=== PATIENT | female | born 1990 | race Two or more races ===

== ENCOUNTER 2019-02-28 14:37 | Inpatient (IN) | payer MEDICAID, OTHER ==
[~2019-02-28] VITALS: Ht 144.8 cm; Wt 62.2 kg
[2019-02-28 15:27] LABS: Albumin 3.9 g/dL (3.4-5.0); Calcium 8.2 mg/dL (8.5-10.1); Potassium 3.7 mmol/L (3.5-5.1)
[2019-02-28 15:30] LABS: BUN/Creatinine Ratio 14.3; Bilirubin, Total 0.7 mg/dL (0.2-1.0); Total Protein 7.9 g/dL (6.4-8.2)
[2019-02-28 15:32] LABS: Basophils # (auto) 0 uL; Basophils % (auto) 0.3 % (0.0-2.0); Eosinophils # (auto) 0.1 uL; Eosinophils % (auto) 0.9 % (0.0-7.0); Hematocrit 40.9 % (36.0-46.0); Hemoglobin 13.7 g/dL (12.2-16.2); Lymphocytes # (auto) 0.6 uL; Lymphocytes % (auto) 7.9 % (10.0-50.0); Mean Corpuscular Hemoglobin 29.7 pg (28.0-32.0); Mean Corpuscular Hgb Conc. 33.4 g/dL (32.0-36.0); Mean Corpuscular Volume 88.7 fL (80.0-100.0); Monocytes # (auto) 0.6 uL; Monocytes % (auto) 7.2 % (0.0-12.0); Neutrophils # (auto) 6.5 uL; Neutrophils % (auto) 83.7 % (37.0-80.0); Platelet Count (auto) 247 10^3/uL (140-450); Red Blood Cells 4.61 10^6/uL (4.0-5.20); Red Cell Distribution Width 15.1 % (11.8-14.3); White Blood Cell 7.8 10^3/uL (4.4-10.8)
[2019-02-28 15:33] LABS: Urine Bacteria NONE SEEN /hpf (None Seen); Urine Blood 1+ /uL (Negative); Urine Mucus FEW (None Seen); Urine Specific Gravity 1.023 (1.001-1.035); Urine WBC 15 /hpf (0 - 5)
[2019-02-28] MEDS ORDERED: cefTRIAXone 1GM/50ML D5W 50 ML IV ONE ×2 (17:30→17:46)
[2019-02-28] MEDS ORDERED: SODIUM CHLORIDE 0.9% 1,000 ML IV ONE ×2 (17:30→20:00)
[2019-02-28] MEDS ORDERED: ONDANSETRON HCL 4 MG/2 ML VIAL IV ONE (17:30)
[2019-02-28] MEDS ORDERED: ONDANSETRON HCL 4 MG/2 ML VIAL ONE (17:46)
[2019-02-28] MEDS ORDERED: MORPHINE SULF INJ 2 MG/ML SYRINGE 1ML IV ONE (20:00)
[2019-02-28] MEDS ORDERED: PROMETHAZINE HCL 25 MG/ML 1ML IV ONE (20:00)
[2019-02-28] MEDS ORDERED: MORPHINE SULF INJ 2 MG/ML SYRINGE 1ML IV PRN (21:00)
[2019-02-28] MEDS ORDERED: ONDANSETRON HCL 4 MG/2 ML VIAL IV PRN (21:00)
[2019-02-28] MEDS: SODIUM CHLORIDE 0.9% 1,000 ML IV SCH (21:18)
[2019-02-28] MEDS ORDERED: FAMOTIDINE (10MG/ML) 2ML VL IV SCH (22:00)
--- NOTE | 2019-02-28 23:14 | NUR ---
MS admit from FAUSTINO CARABALLO admitted to [facility]. Patient oriented to DARWIN CHÁVEZ, RN primary RN, unit, room, bed, and unit policies regarding patient care and visiting hours. Patient weighed by bedscale and encouraged to call if they need something. All questions and concerns addressed, patient verbalized understanding. Bed in low position and call light within reach. VS BP 100/69, O2 saturation 96% room air, HR 60, Temperature 98.2, RR 20. Pain 5/10 will medicate per protocol when available.
[2019-03-01 00:12] VITALS: BP 100/69
[2019-03-01 04:00] VITALS: BP 87/56
--- NOTE | 2019-03-01 04:00 | NUR ---
WILFREDO BETTS. DUE TO LOW PATIENT BP 86/53. VS RETAKEN B/P 87/56 HR 96, RR 16, TEMPERATURE 98.2, O2 SATURATION ON ROOM AIR 98%. PATIENT STATED SHE FEELS DIZZY, DENIES ANY OTHER SYMPTOMS OR PAIN. AWAITING CALL BACK.
--- NOTE | 2019-03-01 05:05 | NUR ---
RECEIVED CALL BACK FROM [facility]. NEW ORDERS RECEIVED 1/2 NS BOLUS IV . ORDERS READ BACK.
[2019-03-01] MEDS ORDERED: SODIUM CHLORIDE 0.9% 500 ML IV ONE (05:15)
[2019-03-01 06:18] LABS: Basophils # (auto) 0 uL; Basophils % (auto) 0.5 % (0.0-2.0); Eosinophils # (auto) 0 uL; Eosinophils % (auto) 0.7 % (0.0-7.0); Hematocrit 34.7 % (36.0-46.0); Hemoglobin 11.7 g/dL (12.2-16.2); Lymphocytes % (auto) 30.5 % (10.0-50.0); Mean Corpuscular Hemoglobin 30.4 pg (28.0-32.0); Mean Corpuscular Hgb Conc. 33.8 g/dL (32.0-36.0); Mean Corpuscular Volume 89.9 fL (80.0-100.0); Monocytes # (auto) 0.5 uL; Neutrophils # (auto) 1.8 uL; Neutrophils % (auto) 53.3 % (37.0-80.0); Nucleated Red Blood Cells % 0.1 %; Platelet Count (auto) 199 10^3/uL (140-450); Red Blood Cells 3.86 10^6/uL (4.0-5.20); Red Cell Distribution Width 14.9 % (11.8-14.3); White Blood Cell 3.4 10^3/uL (4.4-10.8)
--- NOTE | 2019-03-01 06:30 | NUR ---
REASSESSED BLOOD PRESSURE 92/62, HR 71. PATIENT DENIES ANY SYMPTOMS OR SOB. WILL ENDORSE CARE TO DAYSHIFT RN
[2019-03-01 06:39] LABS: BUN/Creatinine Ratio 11.1; Potassium 3.2 mmol/L (3.5-5.1)
--- NOTE | 2019-03-01 07:50 | NUR ---
report given to day shift rn
[2019-03-01 08:21] VITALS: BP 92/62
[2019-03-01] MEDS: SODIUM CHLORIDE 0.9% 1,000 ML IV SCH (10:15)
[2019-03-01] MEDS: cefTRIAXone 1GM/50ML D5W 50 ML IV SCH (11:24)
[2019-03-01] MEDS: PANTOPRAZOLE 40 MG TAB PO SCH ×2 (11:28→21:53)
[2019-03-01 13:00] VITALS: BP 100/66
[2019-03-01] MEDS: D5W/SOD CHL 0.45%/KCL 40MEQ 1,000 ML IV SCH (13:45)
[2019-03-01] MEDS ORDERED: POTASSIUM EFFERVESENT TAB 25 MEQ PO ONE (13:45)
[2019-03-01 14:00] LABS: INR 0.96 (0.9-1.15)
[2019-03-01] MEDS ORDERED: POTASSIUM CHLORIDE 20 MEQ, LIDOCAINE 1% (LOCAL ANESTH.) 2 ML in SODIUM CHL 0.9% 100 ML IV ONE (14:00)
[2019-03-01] MEDS: metroNIDAZOLE 500MG/100ML 100 ML IV SCH ×2 (14:00→21:53)
[2019-03-01 16:41] VITALS: BP 125/72
--- NOTE | 2019-03-01 19:32 | NUR ---
OPENING NOTE Received report from day shift RN. Patient is A&O X's 4 with no s/s of distress. Educated patient on POC and to use call light when in need of assistance and when needing to ambulate since patient reports she feels a little dizzy at times when walking. Educated patient not to eat or drink anything after midnight for the procedure to be done. Patient verbalized understanding. Bed is in lowest/locked position with side rails up X's 2 and call light is within reach of patient. Will continue care. Stool sample still needing to be collected. Patient aware.
[2019-03-01 22:00] VITALS: BP 103/68
--- NOTE | 2019-03-01 22:40 | NUR ---
NURSING NOTES Patient c/o some heart burn. Patient describing it as some reflux, she reports "it feels like a warm liquid sensation going up to my throat" Patient denies feeling nauseas. Patient was laying flat on back at this time. Repositioned patient with HOB elevated and provided an additional pillow. Will continue care and to monitor. Patient educated to use call light for any assistance to for ambulation.
[2019-03-02] MEDS: D5W/SOD CHL 0.45%/KCL 40MEQ 1,000 ML IV SCH ×2 (03:05→21:08)
[2019-03-02 05:27] VITALS: BP 98/69
[2019-03-02] MEDS: metroNIDAZOLE 500MG/100ML 100 ML IV SCH ×2 (06:27→22:59)
--- NOTE | 2019-03-02 06:27 | NUR ---
CONSENT/CHECKLIST Procedure (EGD) consent still needs to be signed. Patient reports she cannot remember if physician informed her about the procedure or not. Patient said she felt comfortable to sign blood and sedation consents. Checklist completed. Educated patient to remove watch. All forms placed in chart.
[2019-03-02 07:21] LABS: Calcium 8.1 mg/dL (8.5-10.1); Potassium 3.8 mmol/L (3.5-5.1)
[2019-03-02 07:24] LABS: BUN/Creatinine Ratio 5.4
[2019-03-02 08:00] VITALS: BP 92/53
[2019-03-02] MEDS ORDERED: SODIUM CHLORIDE LOCK 10 ML ONE (08:07)
[2019-03-02] MEDS ORDERED: MIDAZOLAM HCL 5 MG/ML-1ML VIAL ONE (08:07)
[2019-03-02] MEDS ORDERED: LIDOCAINE VISCOUS 2% 15ML UD ONE (08:07)
[2019-03-02] MEDS ORDERED: fentaNYL CITRATE 100 MCG/2 ML VL ONE (08:07)
[2019-03-02] MEDS ORDERED: diphenhdrAMINE HCL 50 MG/1 ML VL ONE (08:08)
[2019-03-02] MEDS ORDERED: LEVO-28 PO (11:25)
[2019-03-02] MEDS ORDERED: METR500T PO (11:25)
[2019-03-02] MEDS ORDERED: PANT40T PO (11:25)
[2019-03-02 13:16] VITALS: BP 109/57
[2019-03-02 16:00] VITALS: BP 99/65
--- NOTE | 2019-03-02 19:30 | NUR ---
Opening Shift Note Assumed care of patient, awake and alert. No S/S of distress/SOB or pain. Instructed on POC and to call for assist PRN, will continue to monitor for changes Q1hr and PRN.
[2019-03-02 21:25] VITALS: BP 103/60
[2019-03-02] MEDS ORDERED: ENOXAPARIN SOD 120 MG/0.8 ML SYRINGE SC SCH (22:00)
[2019-03-03 05:22] VITALS: BP 95/61
[2019-03-03] MEDS: metroNIDAZOLE 500MG/100ML 100 ML IV SCH ×2 (06:02→13:59)
--- NOTE | 2019-03-03 07:30 | NUR ---
SHIFT CLOSING NOTE ENDORSED CARE OF PATIENT TO DAY SHIFT, GODFREY BENITEZ.
--- NOTE | 2019-03-03 07:50 | NUR ---
Opening Shift Note Assumed care of patient, sitting up in bed having breakfast, pt is awake and alert on room air. No S/S of distress/SOB or pain. No c/o pain. Bed at lowest locked position,side rails up x2 and call light within reach. Instructed on POC and to call for assist PRN, will continue to monitor for changes Q1hr and PRN.
[2019-03-03 08:00] VITALS: BP 96/56
[2019-03-03 09:00] VITALS: BP 96/53
[2019-03-03] MEDS: cefTRIAXone 1GM/50ML D5W 50 ML IV SCH ×2 (09:34→11:39)
[2019-03-03] MEDS: PANTOPRAZOLE 40 MG TAB PO SCH ×2 (09:34→11:39)
[2019-03-03] MEDS: D5W/SOD CHL 0.45%/KCL 40MEQ 1,000 ML IV SCH (10:55)
[2019-03-03 13:00] VITALS: BP 107/67
--- NOTE | 2019-03-03 14:28 | NUR ---
Discharge instructions given as ordered. Encourage to follow up with PMD as instructed. All questions and concerns addressed. Patient verbalized understanding. Medication reconciliation form completed and copy given to patient. IV removed with catheter intact, pressure dressing applied. . Patient taken to vehicle via wheelchair with all personal belongings, accompanied by staff and family member. No distress noted at time of departure.
== END 2019-03-03 14:28 | disposition home or self-care (01) | DRG 241 ==
LOC: ER 14:37 → OVERFLOW 14:38 → WEST WING 23:11
PROVIDERS: ADMIT Nurse Practitioner; ATTEND Internal Medicine
PROC: 0DB68ZX Excision of Stomach, Via Natural or Artificial Opening Endoscopic, Diagnostic (ICD-10-PCS; principal; 2019-03-02 09:37)
DX: K29.70 Gastritis, unspecified, without bleeding (principal); K56.7 Ileus, unspecified; K76.0 Fatty (change of) liver, not elsewhere classified; A09 Infectious gastroenteritis and colitis, unspecified; E87.6 Hypokalemia; N39.0 Urinary tract infection, site not specified; Z90.49 Acquired absence of other specified parts of digestive tract; Z82.49 Family history of ischemic heart disease and other diseases of the circulatory system; Z83.3 Family history of diabetes mellitus
CPT/HCPCS: 36415; 43239; 74176; 80048; 80053; 81001; 81025; 85025; 85610; 85730; 86850; 86900; 86901; G0378; J0696; J2001; J2250; J2405; J3490

== ENCOUNTER 2022-05-28 11:11 | Emergency (ER) | payer MEDICAID ==
[~2022-05-28] VITALS: Ht 149.9 cm; Wt 63.6 kg
[~2022-05-28 11:11] MED LIST: LEVO-28 PO; METR500T PO; PANT40T PO
[2022-05-28 11:48] VITALS: BP 129/80
[2022-05-28] MEDS ORDERED: PRED20TA2 PO (12:07)
[2022-05-28] MEDS ORDERED: AMOX875T3 PO (12:07)
== END 2022-05-28 12:15 | disposition home or self-care (01) ==
LOC: ER 11:11
DX: H66.92 Otitis media, unspecified, left ear (principal); Z79.2 Long term (current) use of antibiotics; Z79.899 Other long term (current) drug therapy

== ENCOUNTER 2022-11-27 05:17 | Emergency (ER) | payer MEDICAID ==
[~2022-11-27] VITALS: Ht 149.9 cm; Wt 64.3 kg
[~2022-11-27 05:17] MED LIST changes: +AMOX875T3 PO; -LEVO-28 PO; +LEVO500T91 PO; +PRED20TA2 PO
[2022-11-27 05:25] VITALS: BP 118/75
[2022-11-27] MEDS ORDERED: IBUP-1456 PO (07:38)
[2022-11-27] MEDS ORDERED: METH-1182 PO (07:38)
[2022-11-27] MEDS ORDERED: IBUPROFEN 800 MG TAB PO ONE (07:45)
== END 2022-11-27 07:52 | disposition home or self-care (01) ==
LOC: ER 05:17
DX: S29.012A Strain of muscle and tendon of back wall of thorax, initial encounter (principal); Z88.1 Allergy status to other antibiotic agents; Z88.6 Allergy status to analgesic agent; X50.1XXA Overexertion from prolonged static or awkward postures, initial encounter; Y93.01 Activity, walking, marching and hiking; Y92.89 Other specified places as the place of occurrence of the external cause; Y99.8 Other external cause status
CPT/HCPCS: 71046

== ENCOUNTER 2023-04-29 18:34 | Emergency (ER) | payer MEDICAID ==
[~2023-04-29] VITALS: Ht 149.9 cm; Wt 68.3 kg
[~2023-04-29 18:34] MED LIST changes: +IBUP-1456 PO; +METH-1182 PO
[2023-04-29 19:39] LABS: Urine Bacteria MOD /hpf (None Seen); Urine Blood TRACE /uL (Negative); Urine Clarity HAZY (Clear); Urine Color Colorless (Yellow); Urine Protein, UAD TRACE (Negative); Urine Specific Gravity 1.014 (1.001-1.035); Urine Urobilinogen Normal (Negative); Urine WBC 47 /hpf (0 - 5); Urine pH 6.5 (5.0-8.0)
[2023-04-29 21:43] LABS: Basophils # (auto) 0.1 10 ^3/uL (0-0.2); Basophils % (auto) 0.7 % (0.0-2.0); Eosinophils # (auto) 0.2 10 ^3/uL (0-0.8); Eosinophils % (auto) 2.7 % (0.0-7.0); Hematocrit 40.2 % (36.0-46.0); Hemoglobin 13.4 g/dL (12.2-16.2); Lymphocytes # (auto) 2.6 10 ^3/uL (0.4-5.4); Lymphocytes % (auto) 31.8 % (10.0-50.0); Mean Corpuscular Hgb Conc. 33.3 g/dL (32.0-36.0); Mean Corpuscular Volume 89.9 fL (80.0-100.0); Monocytes # (auto) 0.7 10 ^3/uL (0-1.3); Neutrophils # (auto) 4.7 10 ^3/uL (1.6-8.6); Neutrophils % (auto) 56.8 % (37.0-80.0); Red Blood Cells 4.47 10^6/uL (4.0-5.20); Red Cell Distribution Width 14.7 % (11.8-14.3); White Blood Cell 8.2 10^3/uL (4.4-10.8)
[2023-04-29 22:02] LABS: Alanine Aminotransferase 30 U/L (7-40); Albumin 4.7 g/dL (3.2-4.8); Alkaline Phosphatase 76 U/L (46-116); Anion Gap 8 (5-15); Aspartate Aminotransferase 24 U/L (13-40); BUN/Creatinine Ratio 10.8 (10.0-20.0); Bilirubin, Total 0.4 mg/dL (0.2-1.0); Blood Urea Nitrogen 7 mg/dL (9-23); Calcium 9.2 mg/dL (8.7-10.4); Carbon Dioxide 25 mmol/L (20-30); Chloride 106 mmol/L (98-107); Glucose 84 mg/dL (74-106); Lipase 42 U/L (12-53); Potassium 3.9 mmol/L (3.5-5.1); Sodium 139 mmol/L (136-145); Total Protein 7.7 g/dL (5.7-8.2)
[2023-04-30] MEDS ORDERED: HYDROcodone-ACET 5/325MG TAB PO ONE
[2023-04-30] MEDS ORDERED: ONDANSETRON ODT 4 MG TAB PO ONE
[2023-04-30 00:47] LABS: COVID19 ANTIGEN SOFIA FIA NEGATIVE (NEGATIVE)
[2023-04-30 02:15] VITALS: BP 142/76; RESP 18; TEMP 98.6; O2SAT 98
[2023-04-30] MEDS ORDERED: KETOROLAC TROMETH 60MG/2ML VIAL IM ONE (02:30)
[2023-04-30] MEDS ORDERED: FAMO20TA10 PO (02:43)
[2023-04-30] MEDS ORDERED: ZOFR4T PO (02:43)
[2023-04-30] MEDS ORDERED: ALBUAER3 IN (02:43)
[2023-04-30] MEDS ORDERED: PRED20TA2 PO (02:43)
[2023-04-30] MEDS ORDERED: BENZ200C64 PO (02:43)
[2023-04-30] MEDS ORDERED: CEPH500C PO (02:43)
[2023-04-30 02:49] VITALS: PULSE 65
== END 2023-04-30 03:39 | disposition home or self-care (01) ==
LOC: ER 18:34
DX: K29.70 Gastritis, unspecified, without bleeding (principal); R10.2 Pelvic and perineal pain; N39.0 Urinary tract infection, site not specified; J20.9 Acute bronchitis, unspecified; Z90.49 Acquired absence of other specified parts of digestive tract; Z20.822 Contact with and (suspected) exposure to COVID-19
CPT/HCPCS: 36415; 80053; 81001; 83690; 84484; 84702; 85025; 87426; 93005; 96372; 99284; J1885; Q0162

== ENCOUNTER 2023-05-15 15:20 | Emergency (ER) | payer MEDICAID ==
[~2023-05-15] VITALS: Ht 149.9 cm; Wt 66.3 kg
[~2023-05-15 15:20] MED LIST changes: +ALBUAER3 IN; +BENZ200C64 PO; +CEPH500C PO; +FAMO20TA10 PO; +ZOFR4T PO
[2023-05-15 17:22] VITALS: BP 142/94; PULSE 119; RESP 18; TEMP 98.1; O2SAT 98
[2023-05-15 17:39] LABS: COVID19 ANTIGEN SOFIA FIA POSITIVE (NEGATIVE)
[2023-05-15 17:40] LABS: Rapid Influenza A Negative (Negative); Rapid Influenza B Negative (Negative)
[2023-05-15] MEDS ORDERED: IBUP1TAB5 PO (17:52)
[2023-05-15] MEDS ORDERED: PROM1SOL4 PO (17:52)
[2023-05-15] MEDS ORDERED: ACET500T58 PO (17:52)
[2023-05-15] MEDS ORDERED: KETOROLAC TROMETH 60MG/2ML VIAL IM ONE (18:00)
[2023-05-15] MEDS ORDERED: ACETAMINOPHEN 500 MG TAB PO ONE (18:00)
== END 2023-05-15 17:58 | disposition home or self-care (01) ==
LOC: ER 15:20
DX: U07.1 COVID-19 (principal)
CPT/HCPCS: 36415; 87426; 87804; 96372; 99283; J1885

== ENCOUNTER 2025-02-13 11:54 | Emergency (ER) | payer MEDICAID ==
[~2025-02-13] VITALS: Ht 149.9 cm; Wt 64.0 kg
[~2025-02-13 11:54] MED LIST changes: +ACET500T58 PO; +IBUP1TAB5 PO; +PROM1SOL4 PO
[2025-02-13 11:57] VITALS: TEMP 98.2
[2025-02-13] MEDS: SODIUM CHLORIDE 0.9% 2,000 ML IV ONE (12:30)
--- NOTE | 2025-02-13 12:36 | ED.PDOC ---
History of Present Illness HPI Comments 35-year-old female with history of prior cholecystectomy complaining of abdominal pain, chest pain and body aches for the last 2 days, associated with nausea, vomiting and initial constipation. Patient states yesterday she developed diarrhea and dysuria. She denies any fever, hematuria or flank pain. Chief Complaint: Urinary Time Seen by MD: 11:57 Primary Care Provider: NONE Reviewed Notes: Medications, Allergies Allergies: Coded Allergies: NO KNOWN ALLERGIES (Unverified , 02/28/19) Home Meds Active Scripts Promethazine-Dm (Promethazine Dm 6.25-15 mg/5Ml) 1 Rosemarie Rosemarie, 5 ML PO TID for 10 Days, #150 ML 0 Refills Prov:CLAIRE PATEL [employer]ILOR 05/15/23 Acetaminophen (Acetaminophen) 500 Mg Tab, 1000 MG PO TIDP PRN for 10 Days, #60 TAB 0 Refills Prov:CLAIRE PATEL NP 05/15/23 Ibuprofen Micronized (Ibuprofen) 600 Mg Tab, 600 MG PO TIDWMEALS for 10 Days, #30 TAB 0 Refills Prov:CLAIRE PATEL NP 05/15/23 Benzonatate (Benzonatate) 200 Mg Cap, 1 CAP PO TID, #30 CAP as neeeded for cough Prov:SCOTT MOLINA [employer] TAILOR 04/30/23 Prednisone (Prednisone) 20 Mg Tab, 1 TAB PO DAILY for 5 Days, #5 TAB with food Prov:SCOTT MOLINA [employer] TAILOR 04/30/23 Albuterol Sulfate (VENTOLIN MDI) 90 Mcg Ih, 1 PUFF IN Q4HR, #1 INH As needed for cough nasal congestion shortness of breath or wheeze Prov:SCOTT MOLINA [employer] TAILOR 04/30/23 Cephalexin Monohydrate (Cephalexin) 500 Mg Cap, 1 CAP PO QID for 10 Days, #40 CAP Prov:SCOTT MOLINA [employer] TAILOR 04/30/23 Ondansetron Odt 4MG Tab (ZOFRAN PO) 4 Mg Tb, 1 TAB PO Q8HR, #15 TAB ODT TAB-DISSOLVE IN MOUTH, THEN SWALLOW as needed for nausea vomiting Prov:SCOTT MOLINA [employer] TAILOR 04/30/23 Famotidine (PEPCID TABLET) 20 Mg Tb, 1 TAB PO BID for 30 Days, #60 TAB Prov:SCOTT MOLINA [employer] TAILOR 04/30/23 Methocarbamol (Methocarbamol) 750 Mg Tab, 750 MG PO BID, #20 TAB Prov:MARCELLUS CHILEL 11/27/22 Ibuprofen (Ibuprofen) 800 Mg Tab, 1 TAB PO TID, #30 TAB Prov:GETACHEWPITERSUSU VIDALES 11/27/22 Prednisone (Prednisone) 20 Mg Tab, 60 MG PO DAILY, #15 MG Prov:MARCELLUS CHILEL 05/28/22 Amoxicillin Trihydrate (Amoxicillin) 875 Mg Tab, 1 TAB PO BID, #20 TAB Prov:MARCELLUS CHILEL 05/28/22 Levofloxacin Hemihydrate (LEVOFLOXACIN) 500 Mg Tab, 1 TAB PO DAILY, #5 TAB Prov:KATHLEEN JIMENEZ MD 03/02/19 Metronidazole (Flagyl) 500 Mg Tab, 500 MG PO Q8HR for 5 Days, #15 TAB Prov:KATHLEEN JIMENEZ MD 03/02/19 Pantoprazole Sodium Sesquihydr (Pantoprazole Sodium) 40 Mg Tab, 40 MG PO DAILY for 30 Days, #30 TAB Prov:KATHLEEN JIMENEZ MD 03/02/19 Information Source: Patient Mode of Arrival: Ambulatory Past Medical History PAST MEDICAL HISTORY: Denies Surgical History: Cholecystectomy 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 Moist mucous membranes.) Neck: Full Range of Motion, Normal Inspection Respiratory: Lungs Clear, No Accessory Muscle Use, No Respiratory Distress, Normal Breath Sounds Cardiovascular: No Edema, No JVD, Regular Rate/Rhythm Breast Exam: Deferred Gastrointestinal: LLQ, RLQ, Soft, Suprapubic, Tenderness Genitalia: Deferred Pelvic: Deferred Rectal: Deferred Extremities: Normal inspection, Normal range of motion, Non-tender, No pedal edema Neurologic: Alert (Oriented x4), Normal Affect, Other (Anxious. Ambulatory.) Cerebellar Function: NOT DONE Reflexes: NOT DONE Skin: Dry, Normal Color, Warm Lymphatic: NOT DONE Was a procedure done? Was a procedure done?: No Differential Dx Considerations may include: UTI, enteritis, colitis, diverticulitis, pancreatitis, viral syndrome, ACS, ID, arrhythmia, among others X-Ray, Labs, Meds, VS Vital Signs Date Time Temp Pulse Resp B/P (MAP) Pulse Ox O2 Delivery O2 Flow Rate FiO2 02/13/25 13:18 75 18 113/71 (85) 96 02/13/25 13:18 75 18 98 Room Air 02/13/25 11:57 98.2 90 14 118/75 99 98.2 Lab Test 02/13/25 13:40 02/13/25 12:43 Range/Units Troponin I High Sensitivity Pending < 3 L </=34 ng/L White Blood Count 6.8 4.4-10.8 10^3/uL Red Blood Count 4.26 4.0-5.20 10^6/uL Hemoglobin 10.7 L 12.2-16.2 g/dL Hematocrit 33.5 L 36.0-46.0 % Mean Corpuscular Volume 78.6 L 80.0-100.0 fL Mean Corpuscular Hemoglobin 25.2 L 28.0-32.0 pg Mean Corpuscular Hemoglobin Concent 32.0 32.0-36.0 g/dL Red Cell Distribution Width 16.0 H 11.8-14.3 % Platelet Count 302 140-450 10^3/uL Mean Platelet Volume 7.6 6.9-10.8 fL Neutrophils (%) (Auto) 54.2 37.0-80.0 % Lymphocytes (%) (Auto) 35.4 10.0-50.0 % Monocytes (%) (Auto) 7.7 0.0-12.0 % Eosinophils (%) (Auto) 1.9 0.0-7.0 % Basophils (%) (Auto) 0.8 0.0-2.0 % Neutrophils # (Auto) 3.7 1.6-8.6 10 ^3/uL Lymphocytes # (Auto) 2.4 0.4-5.4 10 ^3/uL Monocytes # (Auto) 0.5 0-1.3 10 ^3/uL Eosinophils # (Auto) 0.1 0-0.8 10 ^3/uL Basophils # (Auto) 0.1 0-0.2 10 ^3/uL Nucleated Red Blood Cells 0.0 % Sodium Level 138 136-145 mmol/L Potassium Level 3.7 3.5-5.1 mmol/L Chloride Level 105 98-107 mmol/L Carbon Dioxide Level 24 20-31 mmol/L Anion Gap 9 5-15 Blood Urea Nitrogen 8 L 9-23 mg/dL Creatinine 0.60 0.550-1.02 mg/dL Glomerular Filtration Rate Calc 118 >90 mL/min BUN/Creatinine Ratio 13.3 10.0-20.0 Serum Glucose 117 H 74-106 mg/dL Calcium Level 8.6 L 8.7-10.4 mg/dL Total Bilirubin 0.3 0.2-1.0 mg/dL Aspartate Amino Transferase (AST) 18 13-40 U/L Alanine Aminotransferase (ALT) 12 7-40 U/L Alkaline Phosphatase 68 46-116 U/L B-Type Natriuretic Peptide 5.87 0-100 pg/mL Total Protein 7.2 5.7-8.2 g/dL Albumin 4.4 3.2-4.8 g/dL Lipase 40 12-53 U/L Current Medications Medications (Trade) Dose Ordered Sig/Nathalie Route Start Time Stop Time Status Last Admin Sodium Chloride 2,000 ml @ 1,000 mls/hr Q2H ONCE IV 02/13/25 12:30 02/13/25 14:29 02/13/25 12:30 [place] [id number] Ph: [phone] DIAGNOSTIC IMAGING Diagnostic Imaging Report : [id number] Signed PATIENT: FAUSTINO WRIGHT ACCT: [id number] UNIT: [id number] : 1990 LOC: ER ROOM / BED: / AGE / SEX: 35 / F ADM STATUS: REG ER SERVICE 1226 ORDERING PHYSICIAN: INGA RIVERA MD PROCEDURE(s): ABPL - CT AB PEL WO CON-NO ORAL OR IV REASON: Lower abdominal pain, diarrhea ORDER NUMBER(s): [id number], ACCESSION NUMBER(s): [id number] Exam: CT CT AB PEL WO CON-NO ORAL OR IV History: Lower abdominal pain, diarrhea Comparison Study: US PELVIS COMPLETE on DOS: 09/06/21, CT ABD PELVIS WO CONTRAST on DOS: 02/28/19 TECHNIQUE: Multidetector CT of the abdomen AND PELVIS was performed from lung bases to pubic symphysis. Imaging was performed without IV contrast. Axial, coronal and sagittal multiplanar reformats were obtained from the axial data set by the technologist. Radiation Dose Information: CT Dose: CTDI volume is 7.12 mGy. Dose-length product is 3.92 mGy*cm FINDINGS: The lung bases are clear. Partially visualized heart is unremarkable. Liver, spleen, pancreas and and right adrenal glands unremarkable. 3.1 x 1.9 cm left adrenal nodule measuring up to -4 Hounsfield units which may represent an adenoma. Kidneys, ureters and urinary bladder unremarkable. Slight bulky appearance of the uterus. Otherwise, uterus and adnexa unremarkable. Stomach is mildly distended and filled with ingested material. Small bowel loops unremarkable. Appendix is unremarkable. Large bowel is unremarkable. No evidence of intraperitoneal free air or free fluid. No evidence of aortic aneurysm. No significant lymphadenopathy. Minimal fat stranding of the bilateral gluteal regions. Soft tissue thickening of the umbilical region. The soft tissues otherwise unremarkable. No evidence of acute osseous abnormalities. IMPRESSION: No evidence of acute abdominopelvic abnormalities. ATED BY: CAROLIN MEDEL DO DICTATED DATE/TIME: 02/13/25 1323 SIGNED BY: CAROLIN MEDEL DO SIGNED DATE/TIME: 02/13/25 1323 CC: X-Ray, Labs, Meds, VS Comment 35-year-old female with a history of prior cholecystectomy complaining of abdominal pain, chest pain, body aches, nausea, vomiting, diarrhea and dysuria Vitals unremarkable Exam remarkable for anxious appearance, lower abdominal tenderness to palpation Rhythm strip independently interpreted by me: Sinus rhythm, rate 90, no ectopy. CT abdomen and pelvis unremarkable CBC, CMP, lipase, BNP, troponin unremarkable, UA pending Patient treated with the following in the ED: 2 L 0.9 normal saline IV bolus, Toradol 30 mg IV, Zofran 4 mg IV, Protonix 40 mg IV, Rocephin 1 g IV On re-evaluation, pain has improved. Vitals were stable. Patient denies chest pain and is not short of breath. Patient was presumptively treated for UTI, because as of 1399, she still had not provided a urine sample. Patient appears stable for discharge with close outpatient follow-up with her primary physician. Rx ibuprofen, Zofran, Keflex Time of 1ST Reevaluation: 13:36 Reevaluation 1ST: Improved Patient Education/Counseling: Diagnosis, Treatment Family Education/Counseling: No Family Present SEPSIS Sepsis Screen Date sepsis recognized/suspect: Feb 13, 2025 Time Sepsis recognized/suspect: 1200 Recent Procedure: No On Antibiotic Therapy: No Respiratory Rate >20: No Heart Rate >90: No Temp<36 C (96.8 F) or >38.3 C: No SBP <90 or MAP <65 mmHG: No New Acute Mental Status Change: No Is the patient on CPAP, BIPAP,: No Physician Orders Urinalysis (02/13/25 12:26) Electrocardigram (02/13/25 12:26) Ct Ab Pel Wo Con-No Oral Or Iv (02/13/25 12:26) Sodium Chloride 0.9% (02/13/25 12:30) Troponin-I Hs (02/13/25 13:26) Troponin-I Hs (02/13/25 15:26) Vital Signs Date Time Temp Pulse Resp B/P (MAP) Pulse Ox O2 Delivery O2 Flow Rate FiO2 02/13/25 13:18 75 18 113/71 (85) 96 02/13/25 13:18 75 18 98 Room Air 02/13/25 11:57 98.2 90 14 118/75 99 98.2 Laboratory Tests Test 02/13/25 12:43 White Blood Count 6.8 10^3/uL (4.4-10.8) Medications Medications Dose Ordered Sig/Nathalie Route Start Time Stop Time Status Last Admin Dose Admin Sodium Chloride 2,000 ml @ 1,000 mls/hr Q2H ONCE IV 02/13/25 12:30 02/13/25 14:29 02/13/25 12:30 Departure 1 Departure Time of Disposition: 14:00 Impression: Primary Impression: Abdominal pain Additional Impressions: Vomiting and diarrhea UTI (urinary tract infection) Disposition: HOME / SELF CARE / HOMELESS Condition: Stable Additional Instructions: Your blood tests were essentially unremarkable. Your CT scan was unremarkable. I have prescribed antibiotics and medication for pain and vomiting. Follow-up with your primary doctor in 1-2 days. Return to ER for persistent or worsening symptoms. e-Prescriptions Loperamide Hcl (Imodium) 2 Mg Cp 2 MG PO Q6HP PRN, #20 CAP Prn diarrhea Prov: INGA RIVERA MD 02/13/25 Ibuprofen Micronized (Ibuprofen) 600 Mg Tab 600 MG PO Q6HP PRN, #30 TAB Prn pain. Take with food. Prov: INGA RIVERA MD 02/13/25 Ondansetron Odt 4MG Tab (ZOFRAN PO) 4 Mg Tb 4 MG PO TID PRN, #20 TAB Prn nausea/vomiting ODT TAB-DISSOLVE IN MOUTH, THEN SWALLOW Prov: INGA RIVERA MD 02/13/25 Cephalexin Monohydrate (Cephalexin) 500 Mg Cap 1 CAP PO QID for 10 Days, #40 CAP Prov: INGA RIVERA MD 02/13/25 Discharged With: Self Critical Care Note Critical Care Time?: No Stability Stability form required: No Heart Score Heart Score: Heart Score Response (Comments) Value History Slightly Suspicious 0 EKG Repolarization Disturb 1 Age <45 0 Risk Factors No known risk factors 0 Troponin Normal limit 0 Total 1 I personally scribed for INGA RIVERA MD [facility] on 02/13/25 at 13:28. Electronically submitted by Christiana Pringle ([employer]). INGA RIVERA MD Feb 13, 2025 12:36
[2025-02-13 13:04] LABS: Hematocrit 33.5 % (36.0-46.0); Hemoglobin 10.7 g/dL (12.2-16.2); Mean Corpuscular Hemoglobin 25.2 pg (28.0-32.0); Mean Corpuscular Volume 78.6 fL (80.0-100.0); Nucleated Red Blood Cells % 0.0 %
[2025-02-13 13:15] LABS: Alanine Aminotransferase 12 U/L (7-40); Albumin 4.4 g/dL (3.2-4.8); Alkaline Phosphatase 68 U/L (46-116); Anion Gap 9 (5-15); BUN/Creatinine Ratio 13.3 (10.0-20.0); Bilirubin, Total 0.3 mg/dL (0.2-1.0); Carbon Dioxide 24 mmol/L (20-31); Chloride 105 mmol/L (98-107); Lipase 40 U/L (12-53); Potassium 3.7 mmol/L (3.5-5.1); Sodium 138 mmol/L (136-145); Total Protein 7.2 g/dL (5.7-8.2)
[2025-02-13 13:18] VITALS: BP 113/71; PULSE 75; RESP 18; O2SAT 98
[2025-02-13 13:21] LABS: Blood Urea Nitrogen 8 mg/dL (9-23); Calcium 8.6 mg/dL (8.7-10.4); Glucose 117 mg/dL (74-106)
--- NOTE | 2025-02-13 13:25 | DVH ---
Exam: CT CT AB PEL WO CON-NO ORAL OR IV History: Lower abdominal pain, diarrhea Comparison Study: US PELVIS COMPLETE on DOS: 09/06/21, CT ABD PELVIS WO CONTRAST on DOS: 02/28/19 TECHNIQUE: Multidetector CT of the abdomen AND PELVIS was performed from lung bases to pubic symphysi s. Imaging was performed without IV contrast. Axial, coronal and sagittal multiplanar reformats were obtained from the axial data set by the technologist. Radiation Dose Information: CT Dose: CTDI volume is 7.12 mGy. Dose-length product is 3.92 mGy*cm FINDINGS: The lung bases are clear. Partially visualized heart is unremarkable. Liver, spleen, pancreas and and right adrenal glands unremarkable. 3.1 x 1.9 cm left adrenal nodule m easuring up to -4 Hounsfield units which may represent an adenoma. Kidneys, ureters and urinary bladder unremarkable. Slight bulky appearance of the uterus. Otherwise, uterus and adnexa unremarkable. Stomach is mildly distended and filled with ingested material. Small bowel loops unremarkable. Append ix is unremarkable. Large bowel is unremarkable. No evidence of intraperitoneal free air or free fluid. No evidence of aortic aneurysm. No significant lymphadenopathy. Minimal fat stranding of the bilateral gluteal regions. Soft tissue thickening of the umbilical regio n. The soft tissues otherwise unremarkable. No evidence of acute osseous abnormalities. IMPRESSION: No evidence of acute abdominopelvic abnormalities.
[2025-02-13] MEDS ORDERED: IBUP1TAB5 PO (14:07)
[2025-02-13] MEDS ORDERED: CEPH500C PO (14:07)
[2025-02-13] MEDS ORDERED: ZOFR4T PO (14:07)
[2025-02-13] MEDS ORDERED: LOPE2CAP16 PO (14:07)
[2025-02-13] MEDS: PANTOPRAZOLE 40 MG/10 ML VIAL INJ IV ONE (14:55)
[2025-02-13] MEDS: ONDANSETRON HCL 4 MG/2 ML VIAL IV ONE (14:55)
[2025-02-13] MEDS: KETOROLAC TROMETH 30 MG/ML 1ML VIAL IV ONE (14:55)
[2025-02-13 16:54] LABS: Urine Amorphous Crystal FEW /hpf (None Seen); Urine Protein, UAD Negative (Negative)
== END 2025-02-13 16:00 | disposition home or self-care (01) ==
LOC: ER 11:54
DX: N39.0 Urinary tract infection, site not specified (principal); R11.10 Vomiting, unspecified; R19.7 Diarrhea, unspecified; R10.30 Lower abdominal pain, unspecified; Z79.899 Other long term (current) drug therapy; Z79.1 Long term (current) use of non-steroidal anti-inflammatories (NSAID); Z79.52 Long term (current) use of systemic steroids; Z90.49 Acquired absence of other specified parts of digestive tract
CPT/HCPCS: 36415; 74176; 80053; 81001; 83690; 83880; 84484; 85025; 96361; 96365; 96375; 99285; J0696; J1885; J2405; J2470; J7030

== ENCOUNTER 2025-04-05 23:48 | Emergency (ER) | payer MEDICAID ==
[~2025-04-05] VITALS: Ht 149.9 cm; Wt 65.3 kg
[~2025-04-05 23:48] MED LIST changes: +LOPE2CAP16 PO
[2025-04-06 00:41] LABS: Urine Protein, UAD Negative (Negative)
--- NOTE | 2025-04-06 00:53 | ED.PDOC ---
General Chief Complaint: Abdominal Pain Time Seen by MD: 23:54 Primary Care Provider: NONE Reviewed notes: Nurses Notes, Medications, Allergies Allergies: Coded Allergies: NO KNOWN ALLERGIES (Unverified , 02/28/19) Home Meds Active Scripts Loperamide Hcl (Imodium) 2 Mg Cp, 2 MG PO Q6HP PRN, #20 CAP Prn diarrhea Prov:INGA RIVERA MD 02/13/25 Ibuprofen Micronized (Ibuprofen) 600 Mg Tab, 600 MG PO Q6HP PRN, #30 TAB Prn pain. Take with food. Prov:INGA RIVERA MD 02/13/25 Ondansetron Odt 4MG Tab (ZOFRAN PO) 4 Mg Tb, 4 MG PO TID PRN, #20 TAB Prn nausea/vomiting ODT TAB-DISSOLVE IN MOUTH, THEN SWALLOW Prov:INGA RIVERA MD 02/13/25 Cephalexin Monohydrate (Cephalexin) 500 Mg Cap, 1 CAP PO QID for 10 Days, #40 CAP Prov:INGA RIVERA MD 02/13/25 Promethazine-Dm (Promethazine Dm 6.25-15 mg/5Ml) 1 Rosemarie Rosemarie, 5 ML PO TID for 10 Days, #150 ML 0 Refills Prov:CLAIRE PATEL NP 05/15/23 Acetaminophen (Acetaminophen) 500 Mg Tab, 1000 MG PO TIDP PRN for 10 Days, #60 TAB 0 Refills Prov:CLAIRE PATEL NP 05/15/23 Ibuprofen Micronized (Ibuprofen) 600 Mg Tab, 600 MG PO TIDWMEALS for 10 Days, #30 TAB 0 Refills Prov:CLAIRE PATEL NP 05/15/23 Benzonatate (Benzonatate) 200 Mg Cap, 1 CAP PO TID, #30 CAP as neeeded for cough Prov:SCOTT MOLINA NP 04/30/23 Prednisone (Prednisone) 20 Mg Tab, 1 TAB PO DAILY for 5 Days, #5 TAB with food Prov:SCOTT MOLINA NP 04/30/23 Albuterol Sulfate (VENTOLIN MDI) 90 Mcg Ih, 1 PUFF IN Q4HR, #1 INH As needed for cough nasal congestion shortness of breath or wheeze Prov:SCOTT MOLINA LAUNDRY SUPERINTENDENT 04/30/23 Cephalexin Monohydrate (Cephalexin) 500 Mg Cap, 1 CAP PO QID for 10 Days, #40 CAP Prov:SCOTT MOLINA LAUNDRY SUPERINTENDENT 04/30/23 Ondansetron Odt 4MG Tab (ZOFRAN PO) 4 Mg Tb, 1 TAB PO Q8HR, #15 TAB ODT TAB-DISSOLVE IN MOUTH, THEN SWALLOW as needed for nausea vomiting Prov:SCOTT MOLINA Q LAUNDRY SUPERINTENDENT 04/30/23 Famotidine (PEPCID TABLET) 20 Mg Tb, 1 TAB PO BID for 30 Days, #60 TAB Prov:SCOTT MOLINA Q LAUNDRY SUPERINTENDENT 04/30/23 Methocarbamol (Methocarbamol) 750 Mg Tab, 750 MG PO BID, #20 TAB Prov:MARCELLUS CHILEL 11/27/22 Ibuprofen (Ibuprofen) 800 Mg Tab, 1 TAB PO TID, #30 TAB Prov:MARCELLUS CHILEL 11/27/22 Prednisone (Prednisone) 20 Mg Tab, 60 MG PO DAILY, #15 MG Prov:MARCELLUS CHILEL 05/28/22 Amoxicillin Trihydrate (Amoxicillin) 875 Mg Tab, 1 TAB PO BID, #20 TAB Prov:MARCELLUS CHILEL 05/28/22 Levofloxacin Hemihydrate (LEVOFLOXACIN) 500 Mg Tab, 1 TAB PO DAILY, #5 TAB Prov:KATHLEEN JIMENEZ MD 03/02/19 Metronidazole (Flagyl) 500 Mg Tab, 500 MG PO Q8HR for 5 Days, #15 TAB Prov:KATHLEEN JIMENEZ MD 03/02/19 Pantoprazole Sodium Sesquihydr (Pantoprazole Sodium) 40 Mg Tab, 40 MG PO DAILY for 30 Days, #30 TAB Prov:KATHLEEN JIMENEZ MD 03/02/19 Mode of Arrival: Ambulatory Past Medical History PAST MEDICAL HISTORY: Denies Surgical History: Cholecystectomy 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 REP History: 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 REP Hx Family History Family History: Reviewed,noncontributory to illness, Family hx of DM, Family hx of heart javier, Family hx of HTN Social History Smoker: Non-Smoker Alcohol: Denies ETOH Use Drugs: Denies Drug Use Lives In: Home Physical Exam General Appearance: No Apparent Distress, Normal HEENT: Normal ENT Inspection, Pharynx Normal Neck: Full Range of Motion, Non-Tender Respiratory: Lungs Clear, No Respiratory Distress, Normal Breath Sounds Cardiovascular: No Murmur, Normal Peripheral Pulses, Regular Rate/Rhythm Breast Exam: Deferred Gastrointestinal: No Organomegaly, No Pulsatile Mass, Normal Bowel Sounds, Soft, Suprapubic (Tenderness on palpation) Genitalia: Deferred Pelvic: Deferred Rectal: Deferred Extremities: Normal range of motion, No pedal edema Musculoskeletal : Apperance: Normal Neurologic: Alert, No Motor Deficits, Normal Affect, Normal Mood, No Sensory Deficits Cerebellar Function: Normal Reflexes: NOT DONE Skin: Dry, Normal Color, Warm Lymphatic: No Adenopathy Was a procedure done? Was a procedure done?: No Differential Diagnosis Kidney stone (Female): Appendicitis, Bowel obstruction, Cholelithiasis, Ectopic , Ovarian torsion, Pyelonephritis, Strain, Urinary obstruction, Urolithiasis Urinary Problem (Female): UTI, Vaginitis X-Ray, Labs, Meds, VS Vital Signs Date Time Temp Pulse Resp B/P (MAP) Pulse Ox O2 Delivery O2 Flow Rate FiO2 04/06/25 00:00 98.1 79 18 121/84 98 98.1 Lab Test 04/06/25 00:05 Range/Units Urine Color Colorless Yellow Urine Clarity Turbid H Clear Urine pH 5.5 5.0-9.0 Urine Specific [place] 1.010 1.001-1.035 Urine Protein Negative Negative Urine Ketones Negative Negative Urine Blood Trace H Negative /uL Urine Nitrite Negative Negative Urine Bilirubin Negative Negative Urine Urobilinogen Normal Negative mg/dL Urine Leukocyte Esterase 3+ Negative /uL Urine RBC 13 0 - 4 /hpf Urine Microscopic WBC 81 H 0-5 /HPF Urine Squamous Epithelial Cells Few <5 /hpf Urine Bacteria Few H None Seen /hpf Urine Glucose Normal Normal mg/dL X-Ray, Labs, Meds, VS Comment UA positive for infection. Patient given Rocephin 1 g IM and Toradol 60 mg IM. Script trial of Bactrim x5 days advised to take medication as prescribed side effects discussed. Advised to rest increase p.o. fluids with electrolytes avoid caffeinated drinks. Follow up with your PCP in 2-3 days as necessary consider repeat urine and culture if symptoms persist. ER return precautions given patient indicates understanding and agrees with discharge plan of care. Time of 1ST Reevaluation: 00:10 Reevaluation 1ST: Unchanged Time of 2ND Reevaluation: 00:58 Reevaluation 2ND: Improved Patient Education/Counseling: Diagnosis, Treatment, Need For Follow Up Family Education/Counseling: No Family Present SEPSIS Sepsis Screen Date sepsis recognized/suspect: Apr 06, 2025 Time Sepsis recognized/suspect: 0004 Recent Procedure: No On Antibiotic Therapy: No Respiratory Rate >20: No Heart Rate >90: No Temp<36 C (96.8 F) or >38.3 C: No SBP <90 or MAP <65 mmHG: No New Acute Mental Status Change: No Is the patient on CPAP, BIPAP,: No Vital Signs Date Time Temp Pulse Resp B/P (MAP) Pulse Ox O2 Delivery O2 Flow Rate FiO2 04/06/25 00:00 98.1 79 18 121/84 98 98.1 Departure 1 Departure Time of Disposition: 00:58 Impression: Primary Impression: Urinary tract infection Qualified Codes: N30.01 - Acute cystitis with hematuria Disposition: HOME / SELF CARE / HOMELESS Condition: Stable e-Prescriptions Ibuprofen (Ibuprofen) 800 Mg Tab 1 TAB PO Q8HP PRN for 5 Days, #15 TAB Prov: ILENE GOMEZ 04/06/25 Sulfamethoxazole W/Trimethopri (Bactrim Ds Tablet) 1 Tab Tb 1 TAB PO BID for 5 Days, #10 TAB Prov: ILENE GOMEZ 04/06/25 Discharged With: Self Critical Care Note Critical Care Time?: No Stability Stability form required: ILENE Lowe Apr 06, 2025 00:53
[2025-04-06] MEDS ORDERED: BACDST PO (00:56)
[2025-04-06] MEDS ORDERED: IBUP-1456 PO (00:59)
[2025-04-06 01:02] VITALS: BP 112/74; PULSE 81; RESP 19; TEMP 98.2; O2SAT 98
[2025-04-06] MEDS: cefTRIAXone SOD 1,000 MG VL IM ONE (01:02)
[2025-04-06] MEDS: KETOROLAC TROMETH 60MG/2ML VIAL IM ONE (01:02)
== END 2025-04-06 01:17 | disposition home or self-care (01) ==
LOC: ER 23:48
DX: N39.0 Urinary tract infection, site not specified (principal); Z79.899 Other long term (current) drug therapy; Z90.49 Acquired absence of other specified parts of digestive tract; Z87.440 Personal history of urinary (tract) infections; Z79.52 Long term (current) use of systemic steroids; Z79.1 Long term (current) use of non-steroidal anti-inflammatories (NSAID)
CPT/HCPCS: 81001; 96372; 99284; J0696; J1885

== ENCOUNTER 2025-06-01 22:27 | Inpatient (IN) | payer MEDICAID ==
[~2025-06-01] VITALS: Ht 149.9 cm; Wt 71.2 kg
--- NOTE | 2025-06-01 23:07 | ED.PDOC ---
History of Present Illness HPI Comments 35 y/o F is BIBA for c/c of chest pain. Patient reports on being at work when she experienced sudden onset of nonradiating, substernal chest pain, with associated shortness of breath, darkening vision, and lightheadedness x1 hour prior to ED arrival. No endorsed pertinent cardiac history or previous history of similar events in the past. Medical history of UTI's and gastritis. At time of arrival to ED, patient reports on chest pain subsiding but described it as "something sitting on [her] chest" sensation and it worsening with movement. Only current symptoms, now, is headache, excessive sweating, abdominal pain, and burning pain with urination. Time Seen by MD: 22:50 Primary Care Provider: NONE Reviewed Notes: Nurses Notes, [employer] Specialist Notes, Allergies Allergies: Coded Allergies: NO KNOWN ALLERGIES (Unverified , 02/28/19) Information Source: Patient, Emergency Med Personnel Mode of Arrival: EMS Severity: Moderate Timing: Hours Duration: Since onset Prehospital treatment: 12 Lead EKG, Patient Care Past Medical History PAST MEDICAL HISTORY: UTI'S Past Medical History (Other): gastritis ileus Surgical History: Cholecystectomy CLASSER History: Denies all CLASSER Hx Family History Family History: Reviewed,noncontributory to illness, Family hx of DM, Family hx of heart javier, Family hx of HTN Social History Smoker: Non-Smoker Alcohol: Denies ETOH Use Drugs: Denies Drug Use Lives In: Home All Other Systems: Reviewed and Negative (Comprehensive systems review obtained and negative except for what is stated in the HPI.) Physical Exam General Appearance: No Apparent Distress, Normal HEENT: Normal ENT Inspection, Pharynx Normal, TMs Normal Neck: Full Range of Motion, Non-Tender, Normal, Normal Inspection Respiratory: Chest Non-Tender, Lungs Clear, No Accessory Muscle Use, No Respiratory Distress, Normal Breath Sounds Cardiovascular: No Edema, No JVD, No Murmur, No Gallop, Normal Peripheral Pulses, Regular Rate/Rhythm Breast Exam: Deferred Gastrointestinal: No Organomegaly, Non Tender, No Pulsatile Mass, Normal Bowel Sounds, Soft Genitalia: Deferred Pelvic: Deferred Rectal: Deferred Extremities: No calf tenderness, Normal capillary refill, Normal inspection, Normal range of motion, Non-tender, No pedal edema Musculoskeletal : Apperance: Normal Neurologic: Alert, patient care II-XII nml as Tested, No Motor Deficits, Normal Affect, Normal Mood, No Sensory Deficits Cerebellar Function: Normal Reflexes: Normal Skin: Dry, Normal Color, Warm Lymphatic: No Adenopathy Was a procedure done? Was a procedure done?: No Differential Dx Considerations may include: [place], PE, ACS, URI, UTI, pna, anxiety, angina, seizure, vertigo, syncope, near- syncope, hypoglycemia, hypotension, viral, dehydration, electrolyte imbalance, vasovagal response, among others X-Ray, Labs, Meds, VS Vital Signs Date Time Temp Pulse Resp B/P (MAP) Pulse Ox O2 Delivery O2 Flow Rate FiO2 06/02/25 00:37 98.1 88 20 110/75 (87) 99 98.1 06/01/25 23:06 98.4 90 24 142/89 100 98.4 Lab Test 06/01/25 23:08 Range/Units White Blood Count 7.8 4.4-10.8 10^3/uL Red Blood Count 4.09 4.0-5.20 10^6/uL Hemoglobin 10.0 L 12.2-16.2 g/dL Hematocrit 30.9 L 36.0-46.0 % Mean Corpuscular Volume 75.6 L 80.0-100.0 fL Mean Corpuscular Hemoglobin 24.5 L 28.0-32.0 pg Mean Corpuscular Hemoglobin Concent 32.4 32.0-36.0 g/dL Red Cell Distribution Width 17.5 H 11.8-14.3 % Platelet Count 313 140-450 10^3/uL Mean Platelet Volume 7.7 6.9-10.8 fL Neutrophils (%) (Auto) 52.6 37.0-80.0 % Lymphocytes (%) (Auto) 30.8 10.0-50.0 % Monocytes (%) (Auto) 11.7 0.0-12.0 % Eosinophils (%) (Auto) 3.8 0.0-7.0 % Basophils (%) (Auto) 1.1 0.0-2.0 % Neutrophils # (Auto) 4.1 1.6-8.6 10 ^3/uL Lymphocytes # (Auto) 2.4 0.4-5.4 10 ^3/uL Monocytes # (Auto) 0.9 0-1.3 10 ^3/uL Eosinophils # (Auto) 0.3 0-0.8 10 ^3/uL Basophils # (Auto) 0.1 0-0.2 10 ^3/uL Nucleated Red Blood Cells 0.0 % Sodium Level 140 136-145 mmol/L Potassium Level 3.8 3.5-5.1 mmol/L Chloride Level 106 98-107 mmol/L Carbon Dioxide Level 24 20-31 mmol/L Anion Gap 10 5-15 Blood Urea Nitrogen 8 L 9-23 mg/dL Creatinine 0.47 L 0.550-1.02 mg/dL Glomerular Filtration Rate Calc 126 >90 mL/min BUN/Creatinine Ratio 17.0 10.0-20.0 Serum Glucose 104 74-106 mg/dL Calcium Level 9.0 8.7-10.4 mg/dL Time of 1ST Reevaluation: 23:12 Reevaluation 1ST: Unchanged Patient Education/Counseling: Diagnosis, Treatment, Prognosis, Need For Follow Up Family Education/Counseling: No Family Present Comments Patient reportedly had an episode of near-syncope falling which she had chest pain. Patient's cardiac workup is unremarkable she has a low heart score up to, however she reported having pressure-like chest pain with diaphoresis and nausea falling syncope. This is 20 suspicious for angina. Patient will be admitted for further evaluation of unstable angina rule out cardiac arrhythmias. Additional Information Previous history reviewed: February 28, 2019 encounter for acute abdominal pain admission and April 05, 2025 encounter for UTI. The following tests were ordered, and results were reviewed by me: EKG, BMP, CBC, CXR Additional Information was gathered from interviewing the following independent historians: EMS personnel I reviewed and agreed with the following test results read by other providers: CXR I discussed treatment and results with medical personnel and: patient SEPSIS Sepsis Screen Physician Orders Chest Xray 1 View (06/01/25 22:58) Continuous Ekg Monitoring 08,12,16,20,00,04 (06/01/25 22:58) Electrocardigram (06/01/25 22:58) Electrocardigram (06/01/25 23:58) Electrocardigram (06/02/25 01:58) Vital Signs Date Time Temp Pulse Resp B/P (MAP) Pulse Ox O2 Delivery O2 Flow Rate FiO2 06/02/25 00:37 98.1 88 20 110/75 (87) 99 98.1 06/01/25 23:06 98.4 90 24 142/89 100 98.4 Laboratory Tests Test 06/01/25 23:08 White Blood Count 7.8 10^3/uL (4.4-10.8) Departure 1 Departure Time of Disposition: 00:59 Impression: Primary Impression: Near syncope Additional Impression: Unstable angina Disposition: 09 ADMITTED INPATIENT Admit to: Tele Condition: Serious Discharged With: Self Critical Care Note Critical Care Time?: Yes (55 min-critical care time only) Critical care comment: Total critical care time: Approximately 55 minutes Due to a high probability of clinically significant, life threatening deterioration, the patient required my highest level of preparedness to intervene emergently and I personally spent this critical care time directly and personally managing the patient. This critical care time included obtaining a history; examining the patient; pulse oximetry; ordering and review of studies; arranging urgent treatment with development of a management plan; evaluation of patient's response to treatment; frequent reassessment; and, discussions with other providers. This critical care time was performed to assess and manage the high probability of imminent, life-threatening deterioration that could result in multi-organ failure. It was exclusive of separately billable procedures and treating other patients. Stability Stability form required: No Heart Score Heart Score: Heart Score Response (Comments) Value History Moderate Suspicious 1 EKG Repolarization Disturb 1 Age <45 0 Risk Factors No known risk factors 0 Troponin Normal limit 0 Total 2 I personally scribed for LUDY VILLALTA MD ([email or web address]) on 06/01/25 at 23:07. Electronically submitted by Carrington Fuchs ([email or web address]). LUDY VILLALTA MD Jun 01, 2025 23:07
[2025-06-01 23:36] LABS: Hematocrit 30.9 % (36.0-46.0)
[2025-06-01 23:38] LABS: Hemoglobin 10.0 g/dL (12.2-16.2); Mean Corpuscular Hemoglobin 24.5 pg (28.0-32.0); Mean Corpuscular Volume 75.6 fL (80.0-100.0); Nucleated Red Blood Cells % 0.0 %
[2025-06-01 23:47] LABS: Chloride 106 mmol/L (98-107); Potassium 3.8 mmol/L (3.5-5.1); Sodium 140 mmol/L (136-145)
[2025-06-01 23:48] LABS: Anion Gap 10 (5-15); Calcium 9.0 mg/dL (8.7-10.4); Carbon Dioxide 24 mmol/L (20-31)
[2025-06-01 23:53] LABS: BUN/Creatinine Ratio 17.0 (10.0-20.0); Glucose 104 mg/dL (74-106)
[2025-06-01 23:57] LABS: Blood Urea Nitrogen 8 mg/dL (9-23)
--- NOTE | 2025-06-02 00:15 | DVH ---
CHEST RADIOGRAPH INDICATION: cp TECHNIQUE: Single frontal view of the chest was obtained COMPARISON: XR CHEST 1 VIEW on DOS: 04/07/24, XR CHEST 2 VIEWS on DOS: 07/04/23, XY CHEST TWO VIEWS ROUTINE on DOS: 11/27/22, XR CHEST 2 VIEWS on DOS: 09/06/21 FINDINGS: Lungs and pleural spaces are clear. Cardiac silhouette and jennie are within normal limits. Bones and soft tissues demonstrate no significant abnormality. IMPRESSION: No acute disease.
[2025-06-02] MEDS: HYDROcodone-ACET 5/325MG TAB PO ONE (06:24)
[2025-06-02] MEDS ORDERED: ACETAMINOPHEN 325 MG TAB PO PRN (10:15)
[2025-06-02] MEDS ORDERED: MORPHINE SULFATE INJ 2 MG/ml SYRG IV PRN ×2 (10:15→11:15)
[2025-06-02] MEDS ORDERED: NITROGLYCERIN 0.4 MG SL TAB SL PRN (10:15)
[2025-06-02] MEDS ORDERED: ONDANSETRON HCL 4 MG/2 ML VIAL IV PRN (10:15)
--- NOTE | 2025-06-02 11:32 | DVHHPRES ---
History of Present Illness Resident Creating Document: JOCELINE RODGERS RESIDENT History of Present Illness Ms. Cabrera is a 35 years old female with no significant PMH presenting with chest pain which started day prior to admission. Patient reported chest pain is located on the substernal, pressure type, localized without radiation, relieved by sitting down but worsens when lying down, which caused her sweat profusely, associated with the dizziness. She reports this is the 1st episode of this type of chest pain. Dizziness that occurs when standing up quickly, requiring her to stand up slowly on hold onto something for support to prevent a feeling like everything is spinning. patient also reports significant ear pain that has not been evaluated and continues to cause her distress additionally she experiences pain with urination that she is describing as getting worse. PMH: None Surgical history: cholecystectomy Family history: No family history of heart disease reported Social history: Lives at home. Denies smoking, alcohol and other drug abuse works at [employer] Allergies: No known allergies Home medications: None Review of systems is positive for chest pain, SOB, dysuria, dizziness, left ear pain med rest of ROS is negative Review of Systems Allergies: Coded Allergies: NO KNOWN ALLERGIES (Unverified , 02/28/19) Medications Current Medications Medications Dose Ordered Sig/Nathalie Route Start Time Stop Time Status Last Admin Dose Admin Sodium Chloride 10 ml Q8HR IV 06/02/25 14:00 Ondansetron HCl 4 mg Q4HP PRN IV 06/02/25 10:15 Enoxaparin Sodium 40 mg DAILY SC 06/03/25 10:00 Acetaminophen 650 mg Q6HP PRN PO 06/02/25 10:15 Nitroglycerin 0.4 mg Q5MINP PRN SL 06/02/25 10:15 Morphine Sulfate 2 mg Q30M PRN IV 06/02/25 10:15 Aspirin 81 mg DAILY PO 06/03/25 10:00 UNV Pantoprazole Sodium 40 mg DAILY IV 06/02/25 11:15 UNV Baclofen 5 mg Q8HR PO 06/02/25 11:15 UNV Morphine Sulfate 1 mg Q4HP PRN IV 06/02/25 11:15 UNV Exam Vital Signs Vital Signs Date Time Temp Pulse Resp B/P (MAP) Pulse Ox O2 Delivery O2 Flow Rate FiO2 06/02/25 10:13 98.2 82 14 135/96 (109) 99 98.2 06/02/25 10:13 Room Air 06/02/25 01:19 0 21 Exam Pt is lying on bed General Appearance: Alert, Oriented X3, Cooperative, mild distress HEENT: Atraumatic, Mucous membranes moist/pink, left-sided neck & ear tenderness Respiratory: Clear to auscultation, Normal air movement, No added sounds Cardiovascular: Regular rate, Normal S1, Normal S2, No murmurs Abdominal: Active bowel sounds, Soft, no distention, no tenderness Extremities: No edema, Normal pulses, No tenderness/swelling Skin: No Significant rash, except past surgical scars Neuro: Normal speech, sensorimotor deficits none Psych/Mental Status: Mental status NL, Mood NL Nurse was there as brand mgr during examination Labs/Xrays Labs Test 06/02/25 10:20 06/01/25 23:08 Range/Units Troponin I High Sensitivity < 3 L </=34 ng/L White Blood Count 7.8 4.4-10.8 10^3/uL Red Blood Count 4.09 4.0-5.20 10^6/uL Hemoglobin 10.0 L 12.2-16.2 g/dL Hematocrit 30.9 L 36.0-46.0 % Mean Corpuscular Volume 75.6 L 80.0-100.0 fL Mean Corpuscular Hemoglobin 24.5 L 28.0-32.0 pg Mean Corpuscular Hemoglobin Concent 32.4 32.0-36.0 g/dL Red Cell Distribution Width 17.5 H 11.8-14.3 % Platelet Count 313 140-450 10^3/uL Mean Platelet Volume 7.7 6.9-10.8 fL Neutrophils (%) (Auto) 52.6 37.0-80.0 % Lymphocytes (%) (Auto) 30.8 10.0-50.0 % Monocytes (%) (Auto) 11.7 0.0-12.0 % Eosinophils (%) (Auto) 3.8 0.0-7.0 % Basophils (%) (Auto) 1.1 0.0-2.0 % Neutrophils # (Auto) 4.1 1.6-8.6 10 ^3/uL Lymphocytes # (Auto) 2.4 0.4-5.4 10 ^3/uL Monocytes # (Auto) 0.9 0-1.3 10 ^3/uL Eosinophils # (Auto) 0.3 0-0.8 10 ^3/uL Basophils # (Auto) 0.1 0-0.2 10 ^3/uL Nucleated Red Blood Cells 0.0 % Sodium Level 140 136-145 mmol/L Potassium Level 3.8 3.5-5.1 mmol/L Chloride Level 106 98-107 mmol/L Carbon Dioxide Level 24 20-31 mmol/L Anion Gap 10 5-15 Blood Urea Nitrogen 8 L 9-23 mg/dL Creatinine 0.47 L 0.550-1.02 mg/dL Glomerular Filtration Rate Calc 126 >90 mL/min BUN/Creatinine Ratio 17.0 10.0-20.0 Serum Glucose 104 74-106 mg/dL Calcium Level 9.0 8.7-10.4 mg/dL SEPSIS Sepsis Screen Date sepsis recognized/suspect: Jun 02, 2025 Time Sepsis recognized/suspect: 011 Recent Procedure: No On Antibiotic Therapy: No Respiratory Rate >20: No Heart Rate >90: No Temp<36 C (96.8 F) or >38.3 C: No SBP <90 or MAP <65 mmHG: No New Acute Mental Status Change: No Is the patient on CPAP, BIPAP,: No Physician Orders Admit (06/02/25 10:07) Allergies (06/02/25 10:07) Code Status (06/02/25 10:07) Sodium Chloride Lock (Saline Lock Ns) (06/02/25 14:00) Ondansetron Hcl (Zofran) (06/02/25 10:15) Enoxaparin Sodium (Lovenox) (06/03/25 10:00) Complete Blood Count (06/03/25 04:00) Comprehensive Metabolic Panel (06/03/25 04:00) Cardiac Diet-2gna,Lofat,Lochol (06/02/25 Lunch) Echo 2d Mode Cardiac Dop (06/02/25 10:07) Condition: Fair (06/02/25 10:07) Acetaminophen Tablet (Tylenol Tablet) (06/02/25 10:15) Nitroglycerin Sublingual (Ntrostat Subli (06/02/25 10:15) Morphine Sulfate Injection (06/02/25 10:15) Oxygen By Nasal Cannula (06/02/25 10:07) Stat Ekg For Chest Pain (06/02/25 10:07) Notify Md Of Changes From Base (06/02/25 10:07) Fitness Worker For 24 Hours (06/02/25 10:07) Emergency Dysrhythmia Protocol (06/02/25 10:07) Rhythm Strips Once Every Shift (06/02/25 10:07) Sodium Chloride 0.9% (06/02/25 10:15) Troponin-I Hs (06/02/25 11:12) * Cardiology Consult (06/02/25 11:06) B-Type Natriuretic Peptide (06/02/25 11:08) D-Dimer (06/02/25 11:08) Hepatic Panel (06/02/25 11:08) Lipid Panel (06/02/25 11:08) Magnesium (06/02/25 11:08) PTPTT (06/02/25 11:08) Thyroid Stimulating Hormone (06/02/25 11:08) Urinalysis (06/02/25 11:08) Drug Screen (06/02/25 11:08) Aspirin Enteric Coated Tablet (Ecotrin E (06/03/25 10:00) Pantoprazole (Protonix) (06/02/25 11:15) Baclofen Tablet (Liorisal Tablet) (06/02/25 11:15) Hot Pack (06/02/25 ) Morphine Sulfate Injection (06/02/25 11:15) Covid19 Antigen Marissa (06/02/25 ) Rapid Influenza A&B (06/02/25 11:15) Vital Signs Date Time Temp Pulse Resp B/P (MAP) Pulse Ox O2 Delivery O2 Flow Rate FiO2 06/02/25 10:13 98.2 82 14 135/96 (109) 99 98.2 06/02/25 10:13 82 16 99 Room Air 06/02/25 06:17 98.4 84 18 102/66 (78) 98 98.4 06/02/25 04:30 80 18 118/81 (93) 100 Medications Medications Dose Ordered Sig/Nathalie Route Start Time Stop Time Status Last Admin Dose Admin Acetaminophen/ Hydrocodone Bitart 1 tab ONCE ONCE PO 06/02/25 06:15 06/02/25 06:16 DC 06/02/25 06:24 1 TAB Assessment/Plan Assessment/Plan # Chest pain R/o ACS # Near Syncope/ Presyncope Plan: Telemetry Chest pain protocol Aspirin EKG showed normal sinus rhythm no ST changes Echocardiogram, pending Troponins x1 negative Lipid panel, magnesium, TSH, PT INR, D-dimer ordered, pending Cardiology consult ordered for possible stress test # Left neck and Ear pain likely from Possible Torticollis -Hot pack and baclofen relaxant # Acute complicated UTI/ cystitis - evident on urinalysis - ordered urine bacterial culture - currently giving Rocephin PPx Protonix Lovenox Cardiac diet Goals of care addressed with the patient for more than 27 minutes: Full code st atus Case discussed with Dr. Gallardo ,patient and nurse Plan discussed with: Patient My Orders Orders - JOCELINE RODGERS RESIDENT Procedure Category Date Status Time Admit ADMIT 06/02/25 Transmitted 10:07 Allergies JESENIA 06/02/25 In Process 10:07 Code Status CODE 06/02/25 Transmitted 10:07 Sodium Chloride Lock PHA 06/02/25 In Process (Saline Lock Ns) 14:00 Ondansetron Hcl PHA 06/02/25 In Process (Zofran) 10:15 Enoxaparin Sodium PHA 06/03/25 In Process (Lovenox) 10:00 Complete Blood Count LAB 06/03/25 Verified 04:00 Comprehensive LAB 06/03/25 Verified Metabolic Panel 04:00 Cardiac DIET 06/02/25 Transmitted Diet-2gna,Lofat,Lochol Lunch Echo 2d Mode Cardiac US 06/02/25 Logged DOP 10:07 Condition: Fair JESENIA 06/02/25 In Process 10:07 Acetaminophen Tablet PHA 06/02/25 In Process (Tylenol Tablet) 10:15 Nitroglycerin PHA 06/02/25 In Process Sublingual (Ntrostat 10:15 Morphine Sulfate PHA 06/02/25 In Process Injection 10:15 Oxygen By Nasal RT 06/02/25 Transmitted Cannula 10:07 Stat Ekg For Chest JESENIA 06/02/25 In Process Pain 10:07 Notify Of Changes JESENIA 06/02/25 In Process From Base 10:07 Fitness Worker For [facility] 06/02/25 In Process 24 Hours 10:07 Emergency Dysrhythmia JESENIA 06/02/25 In Process Protocol 10:07 Rhythm Strips Once JESENIA 06/02/25 In Process Every Shift 10:07 Sodium Chloride 0.9% PHA 06/02/25 In Process 10:15 Troponin-I Hs LAB 06/02/25 Logged 11:12 * Cardiology Consult CONS 06/02/25 Transmitted 11:06 B-Type Natriuretic LAB 06/02/25 In Process Peptide 11:08 D-Dimer LAB 06/02/25 In Process 11:08 Hepatic Panel LAB 06/02/25 In Process 11:08 Lipid Panel LAB 06/02/25 In Process 11:08 Magnesium LAB 06/02/25 In Process 11:08 PTPTT LAB 06/02/25 In Process 11:08 Thyroid Stimulating LAB 06/02/25 In Process Hormone 11:08 Urinalysis LAB 06/02/25 Logged 11:08 Drug Screen LAB 06/02/25 Logged 11:08 Aspirin Enteric PHA 06/03/25 Logged Coated Tablet 10:00 Pantoprazole PHA 06/02/25 Logged (Protonix) 11:15 Baclofen Tablet PHA 06/02/25 Logged (Liorisal Tablet) 11:15 Hot Pack ED NURSING 06/02/25 Transmitted Morphine Sulfate PHA 06/02/25 Logged Injection 11:15 Covid19 Antigen Marissa LAB 06/02/25 Logged Rapid Influenza A&B LAB 06/02/25 Logged 11:15 Visit Coding STANDARD RES Billing Provider: VICKY GALLARDO MD Date of Service if different f: Jun 02, 2025 Common Visit Codes: [id number] INP/OBS CARE (HIGH) Secondary Visit Codes: [id number] CARE PLAN 30 MINUTES VISHALABRAMLORNA RESIDENT Jun 02, 2025 11:32 VICKY GALLARDO MD Jun 03, 2025 08:01
[2025-06-02 11:34] LABS: Alanine Aminotransferase 12 U/L (7-40); Albumin 4.5 g/dL (3.2-4.8); Alkaline Phosphatase 79 U/L (46-116); Cholesterol 162 mg/dL (< 200); HDL Cholesterol 46 mg/dL (40-59); Magnesium 1.9 mg/dL (1.6-2.6); Total Protein 7.7 g/dL (5.7-8.2); Triglycerides 122 mg/dL (< 150)
[2025-06-02 11:37] LABS: Bilirubin, Direct < 0.1 mg/dL (<0.3); Bilirubin, Total 0.2 mg/dL (0.2-1.0)
[2025-06-02] MEDS: SODIUM CHLORIDE 0.9% 1,000 ML IV ONE (11:41)
[2025-06-02] MEDS: BACLOFEN 10 MG TAB PO SCH ×2 (11:47→20:01)
[2025-06-02] MEDS: PANTOPRAZOLE 40 MG/10 ML VIAL INJ IV SCH (11:49)
[2025-06-02 11:56] LABS: INR 0.95 (0.9-1.15); Partial Thromboplastin Time 27.3 SEC (24.5-34.5); Prothrombin Time 10.1 sec (9.3-11.8)
[2025-06-02 12:04] VITALS: BP 132/78; PULSE 81; RESP 16; TEMP 98.4; O2SAT 100
[2025-06-02 12:19] LABS: Urine Protein, UAD Negative (Negative)
[2025-06-02 12:29] LABS: Opiate Scree,Urine Neg (NEGATIVE)
[2025-06-02 12:30] LABS: Amphetamine Screen, Urine Neg (NEGATIVE); Barbiturate Scree,Urine Neg (NEGATIVE); Benzodiazephine Screen, Urine Neg (NEGATIVE); Cannabinoid Screen, Urine Neg (NEGATIVE); Cocaine Screen, Urine Neg (NEGATIVE); Phencyclidine Screen, Urine Neg (NEGATIVE)
[2025-06-02 12:44] VITALS: BP 105/60; PULSE 73; RESP 16; TEMP 98.2; O2SAT 99
--- NOTE | 2025-06-02 15:17 | DVHINCON2 ---
SUMAN CODY [facility] 06/02/25 1517: Date Seen: Jun 02, 2025 Referring Physician MD Zion Reason for Consultation Typical chest pain, for possible stress test History of Present Illness This is a 35-year-old female who presented to the emergency room via EMS with a chief complaint of shortness of breath. The patient reports she was working at [employer] when she developed a sudden onset of shortness of breath stating she was not able to take a full deep breath and associated with a hot flush sensation, OSCAR and some dizziness lasting for approximately 2-3 minutes. She denied any chest pain. Reports she is usually very active and able to use a flights of stairs without dyspnea on exertion or exertional angina. Reports proper oral hydration. At time of assessment, she denied any further aforementioned symptoms but do complaint of abdominal discomfort. A 12 lead electrocardiogram revealing normal sinus rhythm. Serial troponin levels are negative. Denies any past medical history. Past Medical History Past medical history reviewed. No other significant than mentioned above. Past Surgical History Past surgical history reviewed. No other significant than mentioned above. Family History: Diabetes mellitus G8 MOTHER G8 FATHER G8 SISTER Family History Family history reviewed. Social History Denies the use of illicit drugs, alcohol, or tobacco use. Allergies: Coded Allergies: NO KNOWN ALLERGIES (Unverified , 02/28/19) Home Meds Denies any home medications. Current Medications Current Medications Medications (Trade) Dose Ordered Sig/Nathalie Route PRN Reason Start Time Stop Time Status Last Admin Sodium Chloride (Saline Lock Ns) 10 ml Q8HR IV 06/02/25 14:00 Ondansetron HCl (Zofran) 4 mg Q4HP PRN IV NAUSEA / VOMITING 06/02/25 10:15 Enoxaparin Sodium (Lovenox) 40 mg DAILY SC 06/03/25 10:00 Acetaminophen (Tylenol Tablet) 650 mg Q6HP PRN PO PAIN SCALE 1-3 OR TEMP>100.4 06/02/25 10:15 Nitroglycerin (Ntrostat Sublingual) 0.4 mg Q5MINP PRN SL FOR CHEST PAIN 06/02/25 10:15 Morphine Sulfate 2 mg Q30M PRN IV FOR CHEST PAIN 06/02/25 10:15 Aspirin (Ecotrin Enteric Coated Tablet) 81 mg DAILY PO 06/03/25 10:00 Pantoprazole Sodium (Protonix) 40 mg DAILY IV 06/02/25 11:15 06/02/25 11:49 Baclofen (Liorisal Tablet) 5 mg Q8HR PO 06/02/25 11:15 06/02/25 14:00 DC 06/02/25 11:47 Morphine Sulfate 1 mg Q4HP PRN IV MODERATE PAIN (4-6 PAIN SCALE) 06/02/25 11:15 Baclofen (Liorisal Tablet) 5 mg Q8H PO 06/02/25 20:00 Ceftriaxone Sodium 50 ml @ 100 mls/hr DAILY@09 IV 06/03/25 09:00 UNV Review of Systems Constitutional: Hot flush sensation Ears, Nose, & Throat: No symptom reported Eyes: No symptom reported Neurological: OSCAR, dizziness Pulmonary/Respiratory: SOB Cardiovascular: No symptom reported Gastrointestinal: No symptom reported Genitourinary: No symptom reported Musculoskeletal: No symptom reported Skin: No symptom reported Psychiatric: No symptom reported Endocrine: No symptom reported Hemotologic/Lymphatic: No symptom reported Vital Signs Vital Signs Date Time Temp Pulse Resp B/P (MAP) Pulse Ox O2 Delivery O2 Flow Rate FiO2 06/02/25 12:44 98.2 73 16 105/60 (75) 99 98.2 06/02/25 12:04 Room Air* 0 21 Physical Exam General Appearance: Cooperative. Well developed. Well nourished. In no acute distress Head Exam: Normal inspection Neck Exam: Normal inspection. Non-tender. Normal alignment Pulmonary/Respiratory: Chest non-tender. Clear bilateral breath sounds Cardiovascular/Chest: Regular rate and rhythm. S1, S2. NSR. No murmurs. No JVD. Peripheral Pulses: 2+ Radial (R). 2+ Radial (L). 2+ Pedal (R). 2+ Pedal (L) Abdominal Exam: Normal bowel sounds Ankle Exam: Negative ankle edema Lower extremities: Negative lower extremity edema Neuro/Mental Status: A&O x4. Coherent Thoughts/Psych: Normal thought pattern. Appropriate mood and affect. Good judgement and insight Appearance: In no acute distress Skin Exam: Normal inspection. Normal color. Warm. Dry Labs/Diagnostic Data Labs Test 06/02/25 12:06 06/02/25 11:24 06/02/25 10:20 06/01/25 23:08 Range/Units Urine Color Colorless Yellow Urine Clarity Turbid H Clear Urine pH 5.5 5.0-9.0 Urine Specific [place] 1.009 1.001-1.035 Urine Protein Negative Negative Urine Ketones Negative Negative Urine Blood Trace H Negative /uL Urine Nitrite Negative Negative Urine Bilirubin Negative Negative Urine Urobilinogen Normal Negative mg/dL Urine Leukocyte Esterase 3+ Negative /uL Urine RBC 13 0 - 4 /hpf Urine Microscopic WBC 39 H 0-5 /HPF Urine Squamous Epithelial Cells Many <5 /hpf Urine Bacteria Few H None Seen /hpf Urine Glucose Normal Normal mg/dL Urine Opiates Screen Neg NEGATIVE Urine Fentanyl Screen Neg NEGATIVE Urine Barbiturates Screen Neg NEGATIVE Urine Phencyclidine Screen Neg NEGATIVE Urine Amphetamines Screen Neg NEGATIVE Urine Benzodiazepines Screen Neg NEGATIVE Urine Cocaine Screen Neg NEGATIVE Urine Cannabinoids Screen Neg NEGATIVE Troponin I High Sensitivity < 3 L </=34 ng/L Prothrombin Time 10.1 9.3-11.8 sec Prothrombin Time INR 0.95 0.9-1.15 Activated Partial Thromboplast Time 27.3 24.5-34.5 SEC D-Dimer, Quantitative 0.34 0.0-0.49 mg/L FEU Magnesium Level 1.9 1.6-2.6 mg/dL Total Bilirubin 0.2 0.2-1.0 mg/dL Direct Bilirubin < 0.1 <0.3 mg/dL Aspartate Amino Transferase (AST) 16 13-40 U/L Alanine Aminotransferase (ALT) 12 7-40 U/L Alkaline Phosphatase 79 46-116 U/L B-Type Natriuretic Peptide 3.49 0-100 pg/mL Total Protein 7.7 5.7-8.2 g/dL Albumin 4.5 3.2-4.8 g/dL Triglycerides Level 122 < 150 mg/dL Cholesterol Level 162 < 200 mg/dL LDL Cholesterol 121 H < 100 mg/dL HDL Cholesterol 46 40-59 mg/dL Thyroid Stimulating Hormone (TSH) 3.86 0.55-4.78 uIU/mL White Blood Count 7.8 4.4-10.8 10^3/uL Red Blood Count 4.09 4.0-5.20 10^6/uL Hemoglobin 10.0 L 12.2-16.2 g/dL Hematocrit 30.9 L 36.0-46.0 % Mean Corpuscular Volume 75.6 L 80.0-100.0 fL Mean Corpuscular Hemoglobin 24.5 L 28.0-32.0 pg Mean Corpuscular Hemoglobin Concent 32.4 32.0-36.0 g/dL Red Cell Distribution Width 17.5 H 11.8-14.3 % Platelet Count 313 140-450 10^3/uL Mean Platelet Volume 7.7 6.9-10.8 fL Neutrophils (%) (Auto) 52.6 37.0-80.0 % Lymphocytes (%) (Auto) 30.8 10.0-50.0 % Monocytes (%) (Auto) 11.7 0.0-12.0 % Eosinophils (%) (Auto) 3.8 0.0-7.0 % Basophils (%) (Auto) 1.1 0.0-2.0 % Neutrophils # (Auto) 4.1 1.6-8.6 10 ^3/uL Lymphocytes # (Auto) 2.4 0.4-5.4 10 ^3/uL Monocytes # (Auto) 0.9 0-1.3 10 ^3/uL Eosinophils # (Auto) 0.3 0-0.8 10 ^3/uL Basophils # (Auto) 0.1 0-0.2 10 ^3/uL Nucleated Red Blood Cells 0.0 % Sodium Level 140 136-145 mmol/L Potassium Level 3.8 3.5-5.1 mmol/L Chloride Level 106 98-107 mmol/L Carbon Dioxide Level 24 20-31 mmol/L Anion Gap 10 5-15 Blood Urea Nitrogen 8 L 9-23 mg/dL Creatinine 0.47 L 0.550-1.02 mg/dL Glomerular Filtration Rate Calc 126 >90 mL/min BUN/Creatinine Ratio 17.0 10.0-20.0 Serum Glucose 104 74-106 mg/dL Calcium Level 9.0 8.7-10.4 mg/dL Assessment Microcytic anemia, newly diagnosed Dyslipidemia, newly diagnosed Rule out urinary tract infection Plan/Recommendation (Dr. Stephen) The patient presents with non-cardiogenic symptoms, a heart score of 0 points placing her a low-risk for major cardiac events, negative serial troponin levels, and a twelve-lead electrocardiogram revealing a normal sinus rhythm without evidence of ischemia. Primary care team to continue follow up on iron panel. Consider empiric ABX therapy. There is no further cardiac work-up indicated at this time. Kindly call with any questions or concerns. Thank you for allowing us to participate in this patient's care. This medical document was created using an electronic medical record system with voice recognition software and computerized dictation system. Although this document has been carefully reviewed, there might still be some phonetic and typographical errors. Occasional wrong-word or ``sound-alike substitutions may have occurred due to the inherent limitations of voice recognition software. These areas are purely typographical due to imperfections of the software programs and do not reflect any compromise in the patient's medical care. Please read the chart carefully and recognize, using context, where these substitutions have occurred. Plan discussed with: Patient, Other NYHA Physical activity limitations: NA Date of Service: Jun 02, 2025 Billing Provider: SUMAN CODY Cardiology Common Codes: [id number] INP/OBS CARE (High) ALKA STEPHEN MD 06/02/25 1754: Date Seen: Jun 02, 2025 Referring Physician Patient was seen and examined at bedside and plan was formulated with Jenni Cody cardiology CHEMICAL ENGINEER as above. Briefly this is a 35-year-old woman with no known medical problems (patient does not have a PCP ). Reports she has had wellness checkup couple of years ago. She works at [employer]. Yesterday she developed somewhat acute onset dizziness after standing up from bending position. Reports she may have panicked while trying not to fall and started catching her breath is and then became sweaty. Did not have chest pain or chest discomfort or chest pressure. Patient did not have syncope or presyncope. Her dizziness resolved within a minute or 2. Episode was not associated with palpitation or heart racing. Patient is high high sensitivity troponin were negative x3. EKG does not suggest ischemic changes. TTE revealed preserved LV function and no valvulopathy. Patient reports lower abdominal pain as well as dysuria. Also complain of left ear pain. No further cardiac workup is indicated at this time. Management of dysuria/possible UTI per primary. Alka Stephen MD Family History: Diabetes mellitus G8 MOTHER G8 FATHER G8 SISTER Allergies: Coded Allergies: NO KNOWN ALLERGIES (Unverified , 02/28/19) SUMAN CODY Jun 02, 2025 15:17 ALKA STEPHEN MD Jun 02, 2025 17:54
[2025-06-02] MEDS: SODIUM CHLOR 0.9% PF (SALINE LOCK) 10ML VIAL/SYR IV SCH (15:33)
[2025-06-02 16:25] LABS: COVID19 ANTIGEN SOFIA FIA NEGATIVE (NEGATIVE)
[2025-06-02 16:34] LABS: Total Iron Binding Capacity 411.0 ug/dL (250-425)
[2025-06-02 16:44] LABS: Iron 24.0 ug/dL (50-170)
[2025-06-02 17:00] VITALS: BP 111/77; PULSE 85; RESP 20; TEMP 97.9; O2SAT 98
[2025-06-02 20:00] VITALS: PULSE 75
[2025-06-02 21:00] VITALS: BP 108/62; PULSE 74; RESP 17; TEMP 98.4; O2SAT 98
[2025-06-03 01:00] VITALS: BP 111/64; PULSE 96; RESP 17; TEMP 98.5; O2SAT 99
[2025-06-03 05:00] VITALS: BP 103/34; PULSE 80; RESP 16; TEMP 98.3; O2SAT 98
[2025-06-03 07:36] LABS: Hemoglobin 9.9 g/dL (12.2-16.2)
[2025-06-03 07:38] LABS: Hematocrit 30.4 % (36.0-46.0); Mean Corpuscular Hemoglobin 24.4 pg (28.0-32.0); Mean Corpuscular Volume 74.9 fL (80.0-100.0); Nucleated Red Blood Cells % 0.1 %
[2025-06-03 07:40] LABS: Potassium 3.9 mmol/L (3.5-5.1); Sodium 141 mmol/L (136-145)
[2025-06-03 07:41] LABS: Anion Gap 9 (5-15); Carbon Dioxide 24 mmol/L (20-31)
[2025-06-03 07:42] LABS: Calcium 8.8 mg/dL (8.7-10.4)
[2025-06-03 07:45] LABS: Alkaline Phosphatase 65 U/L (46-116)
[2025-06-03 07:47] LABS: BUN/Creatinine Ratio 16.7 (10.0-20.0); Blood Urea Nitrogen 9 mg/dL (9-23); Glucose 83 mg/dL (74-106); Total Protein 6.7 g/dL (5.7-8.2)
[2025-06-03 07:48] LABS: Albumin 3.8 g/dL (3.2-4.8)
[2025-06-03 07:59] LABS: Alanine Aminotransferase 12 U/L (7-40); Bilirubin, Total 0.3 mg/dL (0.2-1.0); Chloride 108 mmol/L (98-107)
[2025-06-03 08:00] VITALS: PULSE 74; PULSE 93; RESP 20; O2SAT 99
[2025-06-03 08:50] VITALS: BP 105/72; PULSE 93; RESP 20; TEMP 98.4; O2SAT 99
[2025-06-03] MEDS: ASPirin-EC 81 mg tab PO SCH (09:27)
[2025-06-03] MEDS: ENOXAPARIN SOD 40 MG/0.4 ML SYRINGE SC SCH (09:27)
[2025-06-03 13:13] VITALS: BP 104/70; PULSE 89; RESP 18; TEMP 98.8; O2SAT 98
[2025-06-03] MEDS ORDERED: CIPR500T4 PO (16:04)
[2025-06-03 17:07] VITALS: BP 120/79; PULSE 84; RESP 20; TEMP 98.9; O2SAT 98
--- NOTE | 2025-06-03 17:14 | DVHDS2 ---
Discharge Summary Date of Admission Jun 02, 2025 at 10:07 Date of Discharge: Jun 03, 2025 Admitting Diagnosis Chest pain Labs/Diagnostic Data: Laboratory Results Test 06/03/25 06:30 06/02/25 15:41 06/02/25 12:06 06/02/25 11:24 White Blood Count 6.1 10^3/uL (4.4-10.8) Red Blood Count 4.06 10^6/uL (4.0-5.20) Hemoglobin 9.9 g/dL (12.2-16.2) Hematocrit 30.4 % (36.0-46.0) Mean Corpuscular Volume 74.9 fL (80.0-100.0) Mean Corpuscular Hemoglobin 24.4 pg (28.0-32.0) Mean Corpuscular Hemoglobin Concent 32.6 g/dL (32.0-36.0) Red Cell Distribution Width 17.7 % (11.8-14.3) Platelet Count 294 10^3/uL (140-450) Mean Platelet Volume 7.9 fL (6.9-10.8) Neutrophils (%) (Auto) 51.6 % (37.0-80.0) Lymphocytes (%) (Auto) 31.6 % (10.0-50.0) Monocytes (%) (Auto) 11.3 % (0.0-12.0) Eosinophils (%) (Auto) 4.4 % (0.0-7.0) Basophils (%) (Auto) 1.1 % (0.0-2.0) Neutrophils # (Auto) 3.1 10 ^3/uL (1.6-8.6) Lymphocytes # (Auto) 1.9 10 ^3/uL (0.4-5.4) Monocytes # (Auto) 0.7 10 ^3/uL (0-1.3) Eosinophils # (Auto) 0.3 10 ^3/uL (0-0.8) Basophils # (Auto) 0.1 10 ^3/uL (0-0.2) Nucleated Red Blood Cells 0.1 % Sodium Level 141 mmol/L (136-145) Potassium Level 3.9 mmol/L (3.5-5.1) Chloride Level 108 mmol/L (98-107) Carbon Dioxide Level 24 mmol/L (20-31) Anion Gap 9 (5-15) Blood Urea Nitrogen 9 mg/dL (9-23) Creatinine 0.54 mg/dL (0.550-1.02) Glomerular Filtration Rate Calc 122 mL/min (>90) BUN/Creatinine Ratio 16.7 (10.0-20.0) Serum Glucose 83 mg/dL (74-106) Calcium Level 8.8 mg/dL (8.7-10.4) Total Bilirubin 0.3 mg/dL (0.2-1.0) Aspartate Amino Transferase (AST) 15 U/L (13-40) Alanine Aminotransferase (ALT) 12 U/L (7-40) Alkaline Phosphatase 65 U/L (46-116) Total Protein 6.7 g/dL (5.7-8.2) Albumin 3.8 g/dL (3.2-4.8) Influenza Type A Antigen Negative (Negative) Influenza Type B Antigen Negative (Negative) SARS-CoV-2 Antigen (Rapid) Negative (NEGATIVE) Urine Color Colorless (Yellow) Urine Clarity Turbid (Clear) Urine pH 5.5 (5.0-9.0) Urine Specific [place] 1.009 (1.001-1.035) Urine Protein Negative (Negative) Urine Ketones Negative (Negative) Urine Blood Trace /uL (Negative) Urine Nitrite Negative (Negative) Urine Bilirubin Negative (Negative) Urine Urobilinogen Normal mg/dL (Negative) Urine Leukocyte Esterase 3+ /uL (Negative) Urine RBC 13 /hpf (0 - 4) Urine Microscopic WBC 39 /HPF (0-5) Urine Squamous Epithelial Cells Many /hpf (<5) Urine Bacteria Few /hpf (None Seen) Urine Glucose Normal mg/dL (Normal) Urine Opiates Screen Neg (NEGATIVE) Urine Fentanyl Screen Neg (NEGATIVE) Urine Barbiturates Screen Neg (NEGATIVE) Urine Phencyclidine Screen Neg (NEGATIVE) Urine Amphetamines Screen Neg (NEGATIVE) Urine Benzodiazepines Screen Neg (NEGATIVE) Urine Cocaine Screen Neg (NEGATIVE) Urine Cannabinoids Screen Neg (NEGATIVE) Iron Level 24 ug/dL (50-170) Total Iron Binding Capacity 411 ug/dL (250-425) Percent Iron Saturation 5.8 % (15-50) Troponin I High Sensitivity < 3 ng/L (</=34) Test 06/02/25 10:20 Prothrombin Time 10.1 sec (9.3-11.8) Prothrombin Time INR 0.95 (0.9-1.15) Activated Partial Thromboplast Time 27.3 SEC (24.5-34.5) D-Dimer, Quantitative 0.34 mg/L FEU (0.0-0.49) Magnesium Level 1.9 mg/dL (1.6-2.6) Direct Bilirubin < 0.1 mg/dL (<0.3) B-Type Natriuretic Peptide 3.49 pg/mL (0-100) Triglycerides Level 122 mg/dL (< 150) Cholesterol Level 162 mg/dL (< 200) LDL Cholesterol 121 mg/dL (< 100) HDL Cholesterol 46 mg/dL (40-59) Thyroid Stimulating Hormone (TSH) 3.86 uIU/mL (0.55-4.78) Other Laboratory Tests 06/03/25 06:30 Brief Hx & Hospital Course: History of Present Illness Ms. Cabrera is a 35 years old female with no significant PMH presenting with chest pain which started day prior to admission. Patient reported chest pain is located on the substernal, pressure type, localized without radiation, relieved by sitting down but worsens when lying down, which caused her sweat profusely, associated with the dizziness. She reports this is the 1st episode of this type of chest pain. Dizziness that occurs when standing up quickly, requiring her to stand up slowly on hold onto something for support to prevent a feeling like everything is spinning. patient also reports significant ear pain that has not been evaluated and continues to cause her distress additionally she experiences pain with urination that she is describing as getting worse. Course of hospitalization: Patient has been without any chest pain or presyncopal symptoms since being in the hospital. Echocardiogram was performed. Troponins were negative x2. EKG unremarkable. Cardiology consultation was obtained with the patient being cleared from their standpoint. Further discussion with the patient reveals that she also has symptoms of complicated cystitis including dysuria, increased urinary frequency. Patient was started on IV Rocephin in the hospital. All diagnostic findings were discussed with the patient. She is agreeable to be discharged home and be continued on oral antibiotic therapy with ciprofloxacin 500 mg p.o. b.i.d.. Patient will follow up with the discharge Clinic one week. All questions answered. Physical examination General: Alert and Oriented x3. No acute distress. Well-nourished. Eyes: EOMI. Anicteric. HENT: Moist mucous membranes. Lungs: Clear to auscultation bilaterally. No accessory muscle use. Cardiovascular: Regular rate and rhythm. No murmur. No JVD. Abdomen: Soft, non-tender and non-distended. No palpable masses. Extremities: No edema. Non-tender. Skin: No rashes or lesions. Warm. Neurologic: No focal neurological deficits. CN II-XII grossly intact, but not individually tested. Psychiatric: Cooperative. Appropriate mood and affect. Total time spent with patient discussing and formulating plan of care: 35 minutes. This medical document was created using an electronic medical record system with [employer] dictation system. Although this document has been carefully reviewed, there may still be some phonetic and typographical errors. These areas are purely typographical due to imperfections of the software programs, and do not reflect any compromise in the patient's medical care. Consults/Reason for consult Cardiology: Rule out ACS Condition at Discharge: Fair Final Diagnosis/Problems List Chest pain, unspecified Complicated Cystitis Discharge Disposition: Home Discharge Instruct/Medications Diet: Regular Activity: No Restrictions, As Tolerated Follow Up/Referral: DC clinic in 1 week Medications: Ciprofloxin 500mg po bid x 5 days Scheduled Ciprofloxacin Hcl (Ciprofloxacin Hcl), 1 TAB PO BID 36 Discharge Statement: "Patient was advised to return to the ER or call 911 if any headaches, dizziness, shortness of breath, chest pain, abdominal pain, bleeding, fevers, or worsening of medical condition. Patient was counseled about treatment plan, medications, possible side effects, patientverbalized understanding. All questions were answered to the best of my ability. This discharge took greater then 30 minutes in planning, reviewing documentation, counseling the patient, and discussing with other team members." ASSESSMENT ASSESSMENT Assessment Chest pain, unspecified Complicated Cystitis Date of Service: Jun 03, 2025 Billing Provider: JAYLIN DIAZ NP Common Visit Codes: 31156-XZC/OBS DISCH DAY >30min JAYLIN DIAZ NP Jun 03, 2025 17:14
[2025-06-03] MEDS: LORATADINE 10 MG TAB PO ONE (18:04)
--- NOTE | 2025-06-03 19:30 | DVHSR ---
APPROVED REPORT EXAM: Two-dimensional and M-mode echocardiogram with Doppler and color Doppler. Blood Pressure: 135/96 mmHg INDICATION Rule out structural heart disease RISK FACTORS Height: 5'9", Weight: 136 DIMENSIONS LVDd 3.9 (3.8-5.7cm) LA (2D) 3.7 (1.9-4.0cm) Aortic Root 3.1 (2.0-3.7cm) LVDs 2.6 (2.5-4.0cm) LA (MM) (1.9-4.0cm) Aortic Cusp Exc 1.8 (1.5-2.0cm) EF (%) 60.0 (55-70%) Rt. Atrium 3.2 (1.9-4.0cm) Asc. Aorta cm IVSd 1.0 (0.7-1.1cm) RV (D) 3.1 (1.8-2.4cm) PWd 0.9 (0.7-1.1cm) Mitral Valve Mitral Mitral Stenosis E wave 1.06m/s MV Mean GR. mmHg A wave 0.74m/s MV Peak GR. mmHg E/A ratio 1.4 2D MVA cm2 DECEL Time 191ms PRESS 1/2 Time ms Aortic Valve Aortic Valve Aortic Stenosis V1 0.99m/s AO Mean GR. 3mmHg V2 1.30m/s AO Peak GR. 7mmHg LVOT Diameter 1.9 (1.8-2.4cm) Doppler ROB 2.16cm2 Pulmonic Valve V2 0.95m/s Tricuspid Valve TR Velocity 2.24m/s RVSP 23mmHg Conclusion Left ventricle: The cavity size is normal. Systolic function is normal. The estimated ejection fraction is 55-60%. Right ventricle: Systolic function is normal. Mitral valve: There is no stenosis. There is trace regurgitation. Aortic valve: The valve is tricuspid. There is no stenosis or regurgitation. Tricuspid valve: There is no stenosis. There is trace regurgitation. Pericardium there is no pericardial effusion. Inferior vena cava: The vessel is normal in size. There is normal respiratory phasic variation.
--- NOTE | 2025-06-04 07:06 | ECG ---
[facility] Test Date: 2025-06-02 Test Time: 11:13:59 Pat Name: FAUSTINO WRIGHT Department: Respiratoy Room: [address] [place] [address] Gender: F Corporate Administrative Assistant: SYLVIA : 1990 Requested By: LUDY VILLALTA Order Number: [id number] Reading MD: Nixon Banks Measurements Intervals Morton Rate: 80 P: 52 VA: 177 QRS: -29 QRSD: 95 T: 31 QT: 369 QTc: 426 Interpretive Statements Sinus rhythm Borderline left axis deviation RSR' in V1 or V2, right VCD or RVH Baseline wander in lead(s) V3 Electronically Signed On 06-07-2025 10:34:18 PST by Nixon Banks Please click the below link to view image of tracing.
[2025-06-04] MEDS ORDERED: LORATADINE 10 MG TAB PO SCH (10:00)
== END 2025-06-03 19:10 | disposition home or self-care (01) | DRG 347 ==
LOC: ER 22:27 → EDBD 22:27 → OVERFLOW 06-02 10:07 → TELE-EAST 06-02 16:12
PROVIDERS: ADMIT Nurse Practitioner Acute Care; ATTEND Nurse Practitioner Acute Care
DX: M43.6 Torticollis (principal); D50.9 Iron deficiency anemia, unspecified; N30.00 Acute cystitis without hematuria; R07.89 Other chest pain; E78.5 Hyperlipidemia, unspecified; Z90.49 Acquired absence of other specified parts of digestive tract; Z83.3 Family history of diabetes mellitus; Z79.899 Other long term (current) drug therapy
CPT/HCPCS: 36415; 71045; 80048; 80053; 80061; 80076; 80307; 81001; 83540; 83550; 83735; 83880; 84443; 84484; 85025; 85379; 85610; 85730; 87086; 87426; 87804; 93005; 93306; 96360; 99291; G0378; J2470